=== PATIENT | female | born 1970 | race Two or more races ===

== ENCOUNTER 2020-06-18 14:05 | Outpatient (REF) | payer OTHER, SELFPAY ==
--- NOTE | ~2020-06-18 | MM_ITS ---
EXAMINATION: MM SCREENING DIGITAL BREAST TOMOSYNTHESIS, BILATERAL CLINICAL INFORMATION: Screening. Asymptomatic. The lifetime risk of breast cancer based on the Tyrer-Cuzick Model is 11%. COMPARISON: Mammography: 06/13/2019, 07/04/2018, 05/24/2017, 03/30/2017 TECHNIQUE: Digital breast tomosynthesis is performed in both the craniocaudal and mediolateral oblique views along with computer-aided detection (CAD). Synthesized 2D images are generated from the tomosynthesis. FINDINGS: The breasts are heterogeneously dense, which may obscure small masses (ACR BI-RADS breast composition Category c). There are no significant masses, abnormal calcifications, or other abnormalities. Parenchymal pattern is similar to prior exams. MM/MM tomosynthesis screening BI IMPRESSION: No mammographic evidence of malignancy. ASSESSMENT: BI-RADS 1: Negative RECOMMENDATION: Routine annual mammography screening. This patient's information was entered into a reminder system with a target due date for their next mammogram.
== END 2020-06-18 14:06 | disposition home or self-care (01) ==
LOC: HO.MAMMO 14:05
PROVIDERS: PCP Internal Medicine; Visit Provider Internal Medicine
DX: Z12.31 Encounter for screening mammogram for malignant neoplasm of breast (principal)
CPT/HCPCS: 77063; 77067

== ENCOUNTER 2020-07-01 10:27 | Outpatient (REF) | payer OTHER, SELFPAY ==
[2020-07-01 15:18] LABS: Hematocrit 41.1 % (37-47); Hemoglobin 13.9 g/dl (12.0-16.0); Mean Corpuscular HGB Conc 33.8 g/dl (31.0-35.0); Mean Corpuscular Hemoglobin 29.6 pg (27.0-33.0); Mean Corpuscular Volume 87.4 fL (80-98); Mean Platelet Volume 8.9 fL (9.4-12.3); Platelet Count 364 X10*3/uL (160-400); Red Cell Distribution Width 12.5 % (11.0-16.0); White Blood Count 9.5 X10*3/uL (4.8-10.8)
[2020-07-01 16:09] LABS: HCG Quantitative < 2 mIU/mL; Thyroid Stimulating Hormone 0.75 uIU/mL (0.32-4.0)
[2020-07-02 02:47] LABS: Follicle Stimulating Hormone 16.6 mIU/mL; Lutenizing Hormone 13.5 mIU/mL
[2020-07-02 08:46] LABS: BV Int Neg Control Negative (Negative); BV Int Pos Control Positive (Positive)
[2020-07-02 09:57] LABS: C. trachomatis RNA TMA NOT DETECTED (NOT DETECTED); N. gonorrhoeae RNA TMA NOT DETECTED (NOT DETECTED)
[2020-07-06 07:32] LABS: HPV mRNA E6/E7 rflx Not Detected (Not Detected)
== END 2020-07-01 10:28 | disposition home or self-care (01) ==
LOC: HO.LAB 10:27
PROVIDERS: PCP Internal Medicine; Visit Provider Obstetrics & Gynecology
DX: N92.1 Excessive and frequent menstruation with irregular cycle (principal); N76.0 Acute vaginitis; B96.89 Other specified bacterial agents as the cause of diseases classified elsewhere; Z11.51 Encounter for screening for human papillomavirus (HPV)
CPT/HCPCS: 36415; 83001; 83002; 84443; 84702; 85027; 87480; 87491; 87510; 87591; 87624; 87660; 88142; 99212

== ENCOUNTER 2020-07-12 13:37 | Outpatient (REF) | payer OTHER, SELFPAY ==
--- NOTE | ~2020-07-12 | US_ITS ---
EXAMINATION: ULTRASOUND PELVIS COMPLETE CLINICAL INFORMATION: Excessive and frequent menstruation with irregular cycle. LMP 3 months ago. COMPARISON: None TECHNIQUE: Transabdominal and transvaginal ultrasound of the pelvis is performed. FINDINGS: The uterus is anteverted and anteflexed measuring 8.9 cm in length, 4.5 cm in AP and 5.2 cm in transverse dimension. The endometrium is heterogeneous and measures 1.7 cm in thickness. There is a hypoechoic lesion in the left upper body of uterus measuring 2.0 x 2.1 x 1.8 cm. Previously it measured 1.9 x 1.6 x 1.8 cm, suggestive of fibroid. Small nabothian cysts are seen in the cervix. Right ovary measures 2.2 x 1.1 x 1.3 cm and volume 1.7 mL. Previously it measured 1.9 x 2.4 x 1.2 cm. The left ovary measures 2.9 x 2.1 x 3.0 cm and volume 9.6 mL. There is an anechoic cyst with septation measuring 1.4 x 1.5 x 2.5 cm. Previously it measured 3.0 x 2.0 x 1.6 cm. There is no free fluid in cul-de-sac. US/US transvaginal IMPRESSION: Complex cyst left ovary. Heterogenous thickened endometrium measuring 1.7 cm. Nabothian cysts in cervix. Stable solitary uterine fibroid.
--- NOTE | ~2020-07-12 | US_ITS ---
EXAMINATION: ULTRASOUND PELVIS COMPLETE CLINICAL INFORMATION: Excessive and frequent menstruation with irregular cycle. LMP 3 months ago. COMPARISON: None TECHNIQUE: Transabdominal and transvaginal ultrasound of the pelvis is performed. FINDINGS: The uterus is anteverted and anteflexed measuring 8.9 cm in length, 4.5 cm in AP and 5.2 cm in transverse dimension. The endometrium is heterogeneous and measures 1.7 cm in thickness. There is a hypoechoic lesion in the left upper body of uterus measuring 2.0 x 2.1 x 1.8 cm. Previously it measured 1.9 x 1.6 x 1.8 cm, suggestive of fibroid. Small nabothian cysts are seen in the cervix. Right ovary measures 2.2 x 1.1 x 1.3 cm and volume 1.7 mL. Previously it measured 1.9 x 2.4 x 1.2 cm. The left ovary measures 2.9 x 2.1 x 3.0 cm and volume 9.6 mL. There is an anechoic cyst with septation measuring 1.4 x 1.5 x 2.5 cm. Previously it measured 3.0 x 2.0 x 1.6 cm. There is no free fluid in cul-de-sac. US/US pelvic complete IMPRESSION: Complex cyst left ovary. Heterogenous thickened endometrium measuring 1.7 cm. Nabothian cysts in cervix. Stable solitary uterine fibroid.
== END 2020-07-12 13:38 | disposition home or self-care (01) ==
LOC: HO.US 13:37
PROVIDERS: Visit Provider Obstetrics & Gynecology
DX: N92.1 Excessive and frequent menstruation with irregular cycle (principal)
CPT/HCPCS: 76830; 76856

== ENCOUNTER 2020-07-23 14:07 | Outpatient (REF) | payer OTHER, SELFPAY ==
[2020-07-26 21:16] LABS: CA-125 6 U/mL (<35)
== END 2020-07-23 14:08 | disposition home or self-care (01) ==
LOC: HO.LAB 14:07
PROVIDERS: PCP Internal Medicine; Visit Provider Obstetrics & Gynecology
DX: N92.1 Excessive and frequent menstruation with irregular cycle (principal); N83.292 Other ovarian cyst, left side
CPT/HCPCS: 36415; 58100; 86304; 88305; 99212

== ENCOUNTER → 2020-08-02 10:10 | Outpatient (BNVA) | payer OTHER, SELFPAY | PROVIDERS: Visit Provider Obstetrics & Gynecology | CPT/HCPCS: Q3014 ==

== ENCOUNTER → 2020-08-04 10:33 | Outpatient (BNVA) | payer OTHER, SELFPAY | PROVIDERS: PCP Internal Medicine; Visit Provider Obstetrics & Gynecology | DX: N84.0 Polyp of corpus uteri (principal); N92.1 Excessive and frequent menstruation with irregular cycle | CPT/HCPCS: 99212 ==

== ENCOUNTER 2020-08-16 14:32 | Outpatient (REF) | payer OTHER, SELFPAY ==
--- NOTE | ~2020-08-16 | US_ITS ---
EXAMINATION: US THYROID CLINICAL INFORMATION: Thyroid nodule, single nontoxic. COMPARISON: None TECHNIQUE: Linear transducer grayscale and color Doppler examination with attention to the region of the thyroid. FINDINGS: SIZE: Measurements of the thyroid lobes and nodules are given in sagittal, anteroposterior and transverse dimensions respectively. Right Thyroid Lobe: 3.5 x 1.0 x 1.1 cm, volume 1.9 mL. Parenchyma: The gland echotexture is homogeneous. Thyroid vascularity is normal. Left Thyroid Lobe: 3.1 x 0.7 x 1.0 cm, volume 1.2 mL. Parenchyma: The gland echotexture is heterogeneous. Thyroid vascularity is normal. Isthmus: 0.3 cm in maximum AP dimension. Estimated total number of nodules greater than or equal to 1 cm: None. Wool Fleece Grader nodules are described as follows: No thyroid nodules visualized at this time. NODES: No lymphadenopathy is seen in the tissue surrounding the thyroid gland. US/US thyroid IMPRESSION: Small bilateral thyroid gland without any focal nodules. ACR TI-RADS RECOMMENDATION REFERENCE: Ultrasound-guided fine-needle aspiration, followup ultrasound, no further follow up. * TR1 (0 point) and TR 2 (2 points): No FNA or follow up. * TR3 (3 points): FNA if more than or equal to 2.5 cm in maximum dimension, followup ultrasound in 1, 3 and 5 years if 1.5 to 2.4 cm in maximum dimension. * TR4 (4-6 points): FNA if more than or equal to 1.5 cm in maximum dimension, followup ultrasound in 1, 2, 3 and 5 years if 1 to 1.4 cm in maximum dimension. * TR5 (more than or equal to 7 points): FNA if more than or equal to 1 cm in maximum dimension, followup ultrasound every year for 5 years if 0.5 to 0.9 cm in maximum dimension. * TR3, TR4 or TR5 nodules that are below the size threshold for follow up receive no follow up.
--- NOTE | ~2020-08-16 | XR_ITS ---
EXAMINATION: XR CHEST CLINICAL INFORMATION: Dyspnea. COMPARISON: None TECHNIQUE: 2 views of the chest were obtained. FINDINGS: No significant abnormality is noted involving the heart, lungs, mediastinum, bony thorax or soft tissues. XR/XR chest 2V IMPRESSION: Unremarkable chest examination.
== END 2020-08-16 14:33 | disposition home or self-care (01) ==
LOC: HO.US 14:32
PROVIDERS: PCP Internal Medicine; Visit Provider Internal Medicine
DX: E04.1 Nontoxic single thyroid nodule (principal); R06.00 Dyspnea, unspecified
CPT/HCPCS: 71046; 76536

== ENCOUNTER 2020-08-17 12:20 | Day surgery (SDC) | payer OTHER, SELFPAY ==
--- NOTE | 2020-08-05 07:42 | HO.ANESPROP2 ---
HPI - Anesthesia Eval Consult details Narrative: 49yo F for D&C Hysteroscopy with Novasure, Poss Polypectomy, Poss Myomectomy PMFSH Active Problems Active Problems: All Active Problems (Updated 08/02/20 @ 10:58 by Teodoro Mendez MD) Pelvic pain (Acute) Endometrial polyp (Acute) Complex ovarian cyst (Acute) Bacterial vaginosis (Acute) Menometrorrhagia (Acute) Past Medical History Medical History Anxiety Bipolar 1 disorder LOUISE I (cervical intraepithelial neoplasia I) Hypertension Hypothyroid Insomnia Family History Family History Paternal Aunt Breast CA Surgical History Surgical History Tubal ligation status Social History Social History Smoking Status: Never smoker Meds Allergies Allergy/AdvReac Type Severity Reaction Status Date / Time No Known Allergies Allergy Verified 08/02/20 10:11 Home Medications Medication Instructions Recorded Confirmed Last Taken Type bupropion HCl 150 mg 24 hr tablet, mg PO 07/01/20 08/04/20 Unknown History extended release calcium carbonate 600 mg (1,500 1 tab PO BID 07/01/20 08/04/20 Unknown History mg)-vitamin D3 400 unit tablet clonazepam 2 mg tablet 2 mg PO BID PRN 07/01/20 08/04/20 Unknown History estradiol g VAGINAL 07/01/20 08/04/20 Unknown History hydrochlorothiazide 12.5 mg tablet 12.5 mg PO DAILY 07/01/20 08/04/20 Unknown History lamotrigine 25 mg tablet mg PO 07/01/20 08/04/20 Unknown History levothyroxine 88 mcg tablet 88 mcg PO DAILY 07/01/20 08/04/20 Unknown History melatonin 3 mg tablet 3 mg PO BEDTIME 07/01/20 08/04/20 Unknown History topiramate 50 mg tablet 50 mg PO BID 07/01/20 08/04/20 Unknown History ibuprofen 800 mg tablet 800 mg PO Q8H 08/04/20 08/04/20 Unknown History oxycodone 5 mg capsule 5 mg PO BID PRN 08/04/20 08/04/20 Unknown History Exam Exam Date and Time: August 05, 2020 0742 Pertinent Lab Results Pertinent Lab Results: Laboratory Tests 06/03/18 07/01/20 09:50 14:50 WBC 9.5 Hgb 13.9 Hct 41.1 Plt Count 364 Sodium 137 Potassium 3.9 Chloride 100 BUN 19 H Creatinine 1.17 Assessment and Plan Assessment Anesthesia Assessment: Chart Reviewed
--- NOTE | 2020-08-06 06:19 | PC.NURSE ---
pt called at 615 sts cancelled by office
--- NOTE | 2020-08-12 14:05 | HO.ANESPROP2 ---
HPI - Anesthesia Eval Consult details Narrative: 49yo F for D&C Hysteroscopy with Novasure, Poss Polypectomy, Poss Myomectomy PMFSH Active Problems Active Problems: All Active Problems (Updated 08/02/20 @ 10:58 by Teodoro Mendez MD) Pelvic pain (Acute) Endometrial polyp (Acute) Complex ovarian cyst (Acute) Bacterial vaginosis (Acute) Menometrorrhagia (Acute) Past Medical History Medical History Anxiety Bipolar 1 disorder OLUISE I (cervical intraepithelial neoplasia I) Hypertension Hypothyroid Insomnia Family History Family History Paternal Aunt Breast CA Surgical History Surgical History Tubal ligation status Social History Social History Smoking Status: Never smoker Meds Allergies Allergy/AdvReac Type Severity Reaction Status Date / Time No Known Allergies Allergy Verified 08/17/20 13:01 Home Medications Medication Instructions Recorded Confirmed Last Taken Type bupropion HCl 150 mg 24 hr tablet, mg PO 07/01/20 08/04/20 Unknown History extended release calcium carbonate 600 mg (1,500 1 tab PO BID 07/01/20 08/04/20 Unknown History mg)-vitamin D3 400 unit tablet clonazepam 2 mg tablet 2 mg PO BID PRN 07/01/20 08/04/20 Unknown History estradiol g VAGINAL 07/01/20 08/04/20 Unknown History hydrochlorothiazide 12.5 mg tablet 12.5 mg PO DAILY 07/01/20 08/04/20 Unknown History lamotrigine 25 mg tablet mg PO 07/01/20 08/04/20 Unknown History levothyroxine 88 mcg tablet 88 mcg PO DAILY 07/01/20 08/04/20 Unknown History melatonin 3 mg tablet 3 mg PO BEDTIME 07/01/20 08/04/20 Unknown History topiramate 50 mg tablet 50 mg PO BID 07/01/20 08/04/20 Unknown History ibuprofen 800 mg tablet 800 mg PO Q8H 08/04/20 08/04/20 Unknown History oxycodone 5 mg capsule 5 mg PO BID PRN 08/04/20 08/04/20 Unknown History Exam Exam Date and Time: August 12, 2020 1405 Assessment and Plan Assessment Anesthesia Assessment: Chart Reviewed
[2020-08-17] VITALS (7 sets, daily range): BP systolic 114–130; BP diastolic 69–79; PULSE 76–84; RESP 17–18; TEMP 36.6–36.7; O2SAT 98–100; BMI 28.3
--- NOTE | 2020-08-17 13:07 | MHC.SHP ---
Pre-Procedural Eval Section A The patient is an INPATIENT: No Changes since office visit: No Cold of Flu in the past 2 weeks, No New Medical Problems, No Changes in Medication and No Patient answered all questions The History & Physical has been completed within 30 days and I have reviewed it.: Yes Section B Chief Complaint: Polyp of Corpus Uteri, Frequent Menstruation Allergies: Allergies Allergy/AdvReac Type Severity Reaction Status Date / Time No Known Allergies Allergy Verified 08/17/20 13:01 Plan Diagnosis/Plan: Unchanged I have reviewed the history and physical and performed a pertinent physical examination on my patient. No changes have occurred unless specified.
[2020-08-17 13:08] LABS: UPreg QC Valid YES; Urine Pregnancy NEG (NEGATIVE)
--- NOTE | 2020-08-17 13:11 | P.CONAN_ITS ---
[facility] Active Problems Active Problems: All Active Problems (Updated 08/02/20 @ 10:58 by Teodoro Mendez MD) Pelvic pain (Acute) Endometrial polyp (Acute) Complex ovarian cyst (Acute) Bacterial vaginosis (Acute) Menometrorrhagia (Acute) Past Medical History Medical History Anxiety Bipolar 1 disorder LOUISE I (cervical intraepithelial neoplasia I) Hypertension Hypothyroid Insomnia Family History Family History Paternal Aunt Breast CA Surgical History Surgical History Tubal ligation status Social History Social History Smoking Status: Never smoker Use of substances other than those prescribed or required for medical reasons: No Advance Directives: No Advance Directives Information Provided: Yes Meds Allergies Allergy/AdvReac Type Severity Reaction Status Date / Time No Known Allergies Allergy Verified 08/17/20 13:01 Active Medications: Current Medications Generic Name Dose Route Start Last Admin Trade Name Renatoq PRN Reason Stop Dose Admin Lactated Ringer's 1,000 mls @ 100 mls/hr 08/17/20 12:45 Lr IVCONT .Q10H TAYLOR Home Medications Medication Instructions Recorded Confirmed Last Taken Type bupropion HCl 150 mg 24 hr tablet, mg PO 07/01/20 08/04/20 Unknown History extended release calcium carbonate 600 mg (1,500 1 tab PO BID 07/01/20 08/04/20 Unknown History mg)-vitamin D3 400 unit tablet clonazepam 2 mg tablet 2 mg PO BID PRN 07/01/20 08/04/20 Unknown History estradiol g VAGINAL 07/01/20 08/04/20 Unknown History hydrochlorothiazide 12.5 mg tablet 12.5 mg PO DAILY 07/01/20 08/04/20 Unknown History lamotrigine 25 mg tablet mg PO 07/01/20 08/04/20 Unknown History levothyroxine 88 mcg tablet 88 mcg PO DAILY 07/01/20 08/04/20 Unknown History melatonin 3 mg tablet 3 mg PO BEDTIME 07/01/20 08/04/20 Unknown History topiramate 50 mg tablet 50 mg PO BID 07/01/20 08/04/20 Unknown History ibuprofen 800 mg tablet 800 mg PO Q8H 08/04/20 08/04/20 Unknown History oxycodone 5 mg capsule 5 mg PO BID PRN 08/04/20 08/04/20 Unknown History Exam Exam Date and Time: August 17, 2020 1311 Height,Weight and Vital Signs: Height 4 ft 11 in Weight 63.503 kg Last Vital Signs Temp 97.9 F 08/17/20 13:01 Pulse 83 08/17/20 13:01 Resp 18 08/17/20 13:01 BP 118/75 08/17/20 13:01 Pulse Ox 99 08/17/20 13:01 Pertinent Lab Results Pertinent Lab Results: Laboratory Tests 08/17/20 12:52 Urine Test NEG Airway Mallampati Class: II TM Dist: >3cm Loose/Missing/Broken Teeth: No Heart: RRR Lungs: CTA Assessment and Plan Assessment Anesthesia Assessment: Anesthesia Plan Discussed and Chart Reviewed Final Anesthetic Review NPO: Yes ASA Class: II Final Preanesthetic Review: Meds/Allgs Chart Reviewed, Consent Obtained/Reviewed and Anes Risks/Benef Reviewed Patient Risk: Low Procedure Risk: Low Anesthetic Plan Anesthetic Plan: GA Disposition: Standard PACU
[2020-08-17] MEDS: Lactated Ringers 1,000 ML 100 ML IVCONT (13:17)
--- NOTE | 2020-08-17 13:48 | PM.OP ---
Brief Operative Note Date of Service: 08/17/20 Pre-op diagnosis: Menometrorrhagia with questionable endometrial polyp by ultrasound Post-op diagnosis: other (Same with Normal endometrial cavity) Procedure: Diagnostic hysteroscopy D&C with NovaSure Endometrial Ablation Surgeon: Teodoro Mendez MD Anesthesia: MAC Estimated blood loss (mL): 0 Pathology: none sent Condition: stable Disposition: PACU
--- NOTE | 2020-08-17 13:49 | P.OP_ITS ---
Operative Note Operative Note Date of Service: 03/12/20 Narrative: Preop diagnosis: Menometrrrhagia with a endometrial polyp by ultrasound Post Op Diagnosis: Same with normal endometrial cavity Op: Diagnostic hysteroscopy D&C with Novasure Endometrial Ablation Anesthesia: MAC Travel Professional: None QBL: Minimal Pathology: Endometrial scrapings Complications: None Procedure: The patient was put in the dorsal lithotomy position. She was prepped and draped in the usual sterile manner. Bimanual exam prior to prepping revealed a mobile, anteverted uterus. A speculum was placed in the vagina and the anterior lip of the cervix was grasped with a single toothed tenaculum and brought forward. T aking care not to enter deep into the uterus, a sound was passed inside to measure the length of the uterus and cervix. This length was found to be 8 cm. Next, Hegar dilator up to 5 mm in diameter was inserted into the cervical os to measure the cervical length which was 3 cm This yielded an endometrial cavity length of 6.5 cm. Diagnostic hysteroscopy was introduced inside the patient urine cavity which revealed normal cavity with no evidence of any pathology. . A series of Hegar dilators were then inserted sequentially into the cervical os up to a size of 5 mm. Then more cervical dilatation was done till 7 mm was reached. The Novasure device was then opened and tested; the fan deployed easily. The instrument was set to the correct cavity length and introduced into the uterine cavity. The fan was slowly deployed with gentle movements to ensure a snug fit within the cavity. The cavity width read 4.5 cm. The measurements were imported and a cavity check was done. The trumpet was then slid down to the cervix and the device was activated. The total burn time was 91 seconds. The fan was retracted and device removed. The fan was examined and revealed charred tissue. The tenaculum was removed and the cervix examined for hemostasis which was achieved using pressure. Finally the speculum was removed. The patient tolerated the procedure well and was brought to the recovery room in a stable condition. At the end of the procedure all sponges and instruments were counted and correct. The blood loss was minimal and there were no complications.
[2020-08-17] MEDS: Acetaminophen 325 MG TABLET 650 MG PO (14:47)
[2020-08-17] MEDS: oxyCODONE HCl Immed Release 5 MG TABLET PO (14:48)
== END 2020-08-17 15:04 | disposition home or self-care (01) ==
PROVIDERS: PCP Internal Medicine; Visit Provider Obstetrics & Gynecology
PROC: 0UDB8ZX Extraction of Endometrium, Via Natural or Artificial Opening Endoscopic, Diagnostic (ICD-10-PCS; CPT 58558; principal; 2020-08-17 14:00)
DX: N84.0 Polyp of corpus uteri (principal); N92.1 Excessive and frequent menstruation with irregular cycle; Z86.001 Personal history of in-situ neoplasm of cervix uteri; Z98.51 Tubal ligation status; I10 Essential (primary) hypertension; Z79.899 Other long term (current) drug therapy
CPT/HCPCS: 58563; 81025; 88305; J1100; J2250; J2405; J3010

== ENCOUNTER → 2020-08-31 11:47 | Outpatient (BNVA) | payer OTHER, SELFPAY | PROVIDERS: Visit Provider Obstetrics & Gynecology | DX: N92.1 Excessive and frequent menstruation with irregular cycle (principal) | CPT/HCPCS: Q3014 ==

== ENCOUNTER 2020-11-11 15:19 | Outpatient (REF) | payer OTHER, SELFPAY ==
--- NOTE | ~2020-11-11 | US_ITS ---
EXAMINATION: ULTRASOUND PELVIS COMPLETE CLINICAL INFORMATION: Ovarian cysts. Follow up. Status post ablation. COMPARISON: Ultrasound pelvis 07/12/2020. TECHNIQUE: Transabdominal and transvaginal imaging of pelvis is performed. FINDINGS: The uterus is anteverted and anteflexed measuring 8.3 cm in length, 4.2 cm in AP and 5.3 cm in transverse dimension. Endometrial thickness is 0.5 cm. There is a small hypoechoic lesion in the left fundus measuring 1.5 x 1.3 x 1.3 cm. Previously it measured 2.0 x 2.1 x 1.8 cm. No additional lesion seen. There is minimal fluid within the endometrial canal. There is a small anechoic cyst in the cervix. The right ovary measures 2.0 x 1.2 x 1.9 cm and volume 2.4 mL. It appears unremarkable. The left ovary measures 2.7 x 1.7 x 2.3 cm and volume 5.5 mL. A dominant follicle is seen measuring 1.4 x 0.8 x 1.3 cm. It is probably the same cyst without septation. A cyst with septations was seen previously. There is no free fluid in the cul-de-sac. US/US transvaginal IMPRESSION: Stable uterine fibroid. Left ovarian cyst likely same as before minus septation. Previously it measured 1.4 x 1.5 x 2.5 cm.
--- NOTE | ~2020-11-11 | US_ITS ---
EXAMINATION: ULTRASOUND PELVIS COMPLETE CLINICAL INFORMATION: Ovarian cysts. Follow up. Status post ablation. COMPARISON: Ultrasound pelvis 07/12/2020. TECHNIQUE: Transabdominal and transvaginal imaging of pelvis is performed. FINDINGS: The uterus is anteverted and anteflexed measuring 8.3 cm in length, 4.2 cm in AP and 5.3 cm in transverse dimension. Endometrial thickness is 0.5 cm. There is a small hypoechoic lesion in the left fundus measuring 1.5 x 1.3 x 1.3 cm. Previously it measured 2.0 x 2.1 x 1.8 cm. No additional lesion seen. There is minimal fluid within the endometrial canal. There is a small anechoic cyst in the cervix. The right ovary measures 2.0 x 1.2 x 1.9 cm and volume 2.4 mL. It appears unremarkable. The left ovary measures 2.7 x 1.7 x 2.3 cm and volume 5.5 mL. A dominant follicle is seen measuring 1.4 x 0.8 x 1.3 cm. It is probably the same cyst without septation. A cyst with septations was seen previously. There is no free fluid in the cul-de-sac. US/US pelvic complete IMPRESSION: Stable uterine fibroid. Left ovarian cyst likely same as before minus septation. Previously it measured 1.4 x 1.5 x 2.5 cm.
== END 2020-11-11 15:20 | disposition home or self-care (01) ==
LOC: HO.US 15:19
PROVIDERS: Visit Provider Obstetrics & Gynecology
DX: N83.299 Other ovarian cyst, unspecified side (principal)
CPT/HCPCS: 76830; 76856

== ENCOUNTER 2021-01-11 10:05 | Outpatient (REF) | payer OTHER, SELFPAY ==
--- NOTE | ~2021-01-11 | XR_ITS ---
EXAMINATION: XR LUMBOSACRAL SPINE CLINICAL INFORMATION: Lumbago with sciatica right-sided. COMPARISON: None TECHNIQUE: Three views of the lumbosacral spine. FINDINGS: Mild thoracolumbar dextroscoliosis is present, could be positional. The vertebral bodies and posterior elements are normal. The disc spaces are preserved and the vertebral alignment is normal. The paraspinal soft tissues are normal. XR/XR lumbar spine 2-3V IMPRESSION: Mild thoracolumbar dextroscoliosis, could be positional, otherwise unremarkable.
== END 2021-01-11 10:06 | disposition home or self-care (01) ==
LOC: HO.XRAY 10:05
PROVIDERS: PCP Internal Medicine; Visit Provider Internal Medicine
DX: M54.41 Lumbago with sciatica, right side (principal)
CPT/HCPCS: 72100

== ENCOUNTER 2021-01-27 10:33 | Outpatient (REF) | payer OTHER, SELFPAY ==
[2021-01-27 15:46] LABS: CT PCR NOT DETECTED (Not Detect.); NG PCR NOT DETECTED (Not Detect.)
[2021-01-28 09:30] LABS: BV Int Neg Control Negative (Negative); BV Int Pos Control Positive (Positive)
== END 2021-01-27 10:34 | disposition home or self-care (01) ==
LOC: HO.LAB 10:33
PROVIDERS: PCP Internal Medicine; Visit Provider Obstetrics & Gynecology
DX: B37.3 Candidiasis of vulva and vagina (principal); N83.299 Other ovarian cyst, unspecified side; D22.9 Melanocytic nevi, unspecified
CPT/HCPCS: 87480; 87491; 87510; 87591; 87660; 99212

== ENCOUNTER 2021-02-23 09:46 | Outpatient (REF) | payer OTHER, SELFPAY | END 2021-02-23 09:47 | disposition home or self-care (01) | LOC: HO.LAB 09:46 | PROVIDERS: Visit Provider Obstetrics & Gynecology | DX: D22.9 Melanocytic nevi, unspecified (principal) | CPT/HCPCS: 11400; 88304; 88305 ==

== ENCOUNTER → 2021-04-07 12:14 | Outpatient (BNVA) | payer OTHER, SELFPAY | PROVIDERS: Visit Provider Obstetrics & Gynecology | DX: D22.9 Melanocytic nevi, unspecified (principal) | CPT/HCPCS: 99212 ==

== ENCOUNTER → 2021-05-24 13:29 | Outpatient (BNVA) | payer OTHER, SELFPAY | PROVIDERS: PCP Internal Medicine; Visit Provider Nurse Practitioner Family | DX: M53.3 Sacrococcygeal disorders, not elsewhere classified (principal); M47.816 Spondylosis without myelopathy or radiculopathy, lumbar region | CPT/HCPCS: 99202 ==

== ENCOUNTER 2021-06-21 13:20 | Outpatient (REF) | payer OTHER, SELFPAY ==
--- NOTE | ~2021-06-21 | MM_ITS ---
EXAMINATION: MM SCREENING DIGITAL BREAST TOMOSYNTHESIS, BILATERAL CLINICAL INFORMATION: Screening. Asymptomatic. The lifetime risk of breast cancer based on the Tyrer-Cuzick Model is 8%. COMPARISON: Mammography: 06/18/2020, 06/13/2019, 06/06/2018 TECHNIQUE: Digital breast tomosynthesis is performed in both the craniocaudal and mediolateral oblique views along with computer-aided detection (CAD). Synthesized 2D images are generated from the tomosynthesis. FINDINGS: The breasts are heterogeneously dense, which may obscure small masses (ACR BI-RADS breast composition Category c). There are no significant masses, abnormal calcifications, or other abnormalities. Parenchymal pattern is similar to prior studies. There is no developing density or architectural abnormality. The axilla and skin contours are unremarkable. No significant changes. MM/MM tomosynthesis screening BI IMPRESSION: No mammographic evidence of malignancy. ASSESSMENT: BI-RADS 1: Negative RECOMMENDATION: Routine annual mammography screening. This patient's information was entered into a reminder system with a target due date for their next mammogram.
== END 2021-06-21 13:21 | disposition home or self-care (01) ==
LOC: HO.MAMMO 13:20
PROVIDERS: PCP Internal Medicine; Visit Provider Internal Medicine
DX: Z12.31 Encounter for screening mammogram for malignant neoplasm of breast (principal)
CPT/HCPCS: 77063; 77067

== ENCOUNTER 2021-07-27 05:47 | Outpatient (REF) | payer OTHER, SELFPAY ==
--- NOTE | ~2021-07-27 | FL_ITS ---
EXAMINATION: XR FLUOROSCOPY WITH IMAGES CLINICAL INFORMATION: Sacral coccygeal disorder COMPARISON: None. TECHNIQUE: Fluoroscopy performed by Dr. Scotty Velazquez. Fluoroscopy time: 0.3 minutes DAP: 0.543 Gycm2 Images: 4 FINDINGS: 4 C-arm views demonstrate placement of needles overlying the sacroiliac joints bilaterally. FL/FL guidance in treatment room IMPRESSION: Fluoroscopy provided for pain management.
== END 2021-07-27 05:48 | disposition home or self-care (01) ==
LOC: HO.RADIR 05:47
PROVIDERS: Visit Provider Internal Medicine
DX: M53.3 Sacrococcygeal disorders, not elsewhere classified (principal)
CPT/HCPCS: 27096; J1040; Q9967

== ENCOUNTER → 2021-09-02 09:24 | Outpatient (BNVA) | payer OTHER, SELFPAY | PROVIDERS: PCP Internal Medicine; Visit Provider Nurse Practitioner Family | DX: M53.3 Sacrococcygeal disorders, not elsewhere classified (principal); M47.816 Spondylosis without myelopathy or radiculopathy, lumbar region; M62.838 Other muscle spasm | CPT/HCPCS: 99212 ==

== ENCOUNTER 2022-06-30 13:42 | Outpatient (REF) | payer OTHER, SELFPAY ==
--- NOTE | ~2022-06-30 | MM_ITS ---
EXAMINATION: MM SCREENING DIGITAL BREAST TOMOSYNTHESIS, BILATERAL CLINICAL INFORMATION: Screening. Asymptomatic. The lifetime risk of breast cancer based on the Tyrer-Cuzick Model is 7%. COMPARISON: Mammography: 06/21/2021, 06/18/2020, 06/13/2019 TECHNIQUE: Digital breast tomosynthesis is performed in both the craniocaudal and mediolateral oblique views along with computer-aided detection (CAD). Synthesized 2D images are generated from the tomosynthesis. FINDINGS: The breasts are heterogeneously dense, which may obscure small masses (ACR BI-RADS breast composition Category c). There are no significant masses, abnormal calcifications, or other abnormalities. No architectural abnormality or developing density or significant change from prior studies. The axilla are unremarkable. Skin contours are smooth. MM/MM tomosynthesis screening BI IMPRESSION: No mammographic evidence of malignancy. ASSESSMENT: BI-RADS 1: Negative RECOMMENDATION: Routine annual mammography screening. This patient's information was entered into a reminder system with a target due date for their next mammogram.
== END 2022-06-30 13:43 | disposition home or self-care (01) ==
LOC: HO.MAMMO 13:42
PROVIDERS: Visit Provider Obstetrics & Gynecology
DX: Z12.31 Encounter for screening mammogram for malignant neoplasm of breast (principal)
CPT/HCPCS: 77063; 77067

== ENCOUNTER 2023-07-06 13:41 | Outpatient (REF) | payer OTHER, SELFPAY | END 2023-07-06 13:42 | disposition home or self-care (01) | LOC: HO.MAMMO 13:41 | PROVIDERS: PCP Student in an Organized Health Care Education/Training Program; Visit Provider Student in an Organized Health Care Education/Training Program | DX: Z12.31 Encounter for screening mammogram for malignant neoplasm of breast (principal) | CPT/HCPCS: 77063; 77067 ==

== ENCOUNTER → 2023-07-06 14:00 | Outpatient (BNV) | payer OTHER, SELFPAY | PROVIDERS: PCP Student in an Organized Health Care Education/Training Program; Visit Provider Radiology Diagnostic Radiology | DX: Z12.31 Encounter for screening mammogram for malignant neoplasm of breast (principal) | CPT/HCPCS: 77063; 77067 ==

== ENCOUNTER 2023-08-29 13:25 | Outpatient (REF) | payer MEDICARE, MEDICAID, SELFPAY ==
[2023-08-30 14:16] LABS: CT PCR NOT DETECTED (Not Detect.); NG PCR NOT DETECTED (Not Detect.)
[2023-08-31 09:46] LABS: BV Int Neg Control Negative (Negative); BV Int Pos Control Positive (Positive)
== END 2023-08-29 13:26 | disposition home or self-care (01) ==
LOC: HO.LNP 13:25
PROVIDERS: Visit Provider Obstetrics & Gynecology
DX: Z01.419 Encounter for gynecological examination (general) (routine) without abnormal findings (principal); Z20.2 Contact with and (suspected) exposure to infections with a predominantly sexual mode of transmission
CPT/HCPCS: 0353U; 87480; 87510; 87660; G0101

== ENCOUNTER 2023-08-29 13:25 | Outpatient (AMB) | payer MEDICARE, MEDICAID, SELFPAY ==
--- NOTE | 2023-08-29 13:33 | A.OFFVIS_ITS ---
Vital Signs 08/29/23 13:51 Height 4 ft 11 in Weight 130 lb BMI 26.3 BP 118/70 Intake Visit Reasons: DIP[employer]OCK [employer] W[employer]S annual exam/DO NOT RS Intake Note: c/o of vaginal discharge Clinical Trials Specialist Required: Yes Clinical Trials Specialist Language: Laser Beam Trim Operator Name: Iona VALENTIN Information Interpreted: non-clinical & clinical Bottle Assembler: Bottle Assembler Present (Iona VALENTIN) Accompanied by: Self / Same As Patient Allergies No Known Allergies Allergy (Verified 08/29/23 13:53) Post menopausal: Yes HPI Comments Details: Presenting for annual exam. No complaints. Last Pap/HPV was negative in 07/18 Last Mammogram was BI-RADS 1 in 07/21 No previous screening Colonoscopy PFSH Medical History LOUISE I (cervical intraepithelial neoplasia I) Hypertension Insomnia Anxiety Bipolar 1 disorder Hypothyroid Surgical History Hx of cholecystectomy Tubal ligation status Family History Paternal Aunt Breast CA Social History Household Members: None Housing: Apartment Alcohol intake: never Patient Tobacco Use Status: Never used Tobacco Current occupational status: unemployed Sexually active: No Sexual orientation: Straight/Heterosexual Gender identity: Female Female Reproductive History Menstrual Age of Menarche: 14 control method: permanent sterilization Menopause type: natural Total pregnancies: 2 Full term: 2 Number of Living Children: 2 Date of last pap smear: 08/30/20 Date of Mammogram: 07/06/23 Review of Systems Const All systems reviewed & are unremarkable except as noted in HPI and below Card Reports as per HPI Resp Reports as per HPI GI Reports as per HPI and Reports no additional complaints Reports as per HPI Physical Exam Vital Signs: Last Vital Signs BP 118/70 08/29/23 13:51 BMI result Body Mass Index 26.3 Const General: cooperative, healthy appearing and comfortable Chest Chest palpation & inspection: normal inspection of the chest and normal palpation of entire chest wall Breast/axilla inspection: normal inspection of the breasts and normal inspection of the axillae Breast/axilla palpation: normal palpation of the breasts, normal palpation of the axillae and no axillary lymphadenopathy Resp Effort & Inspection: normal respiratory effort Auscultation: clear to auscultation bilaterally Percussion: percussion normal Cardio Palpation: normal PMI Rate: regular rate Rhythm: regular rhythm Heart sounds: no murmurs and no rubs Peripheral pulses: Peripheral pulses 2+ throughout GI Inspection: Yes normal to inspection Palpation (GI): Soft to palpation, nontender, no guarding, not rigid and No hepatosplenomegaly present Percussion: Yes normal to percussion Auscultation: normal bowel sounds Rectal Exam - Female: deferred General: Yes bladder normal to palpation External Female Exam: No lesion Speculum Exam - Vagina: normal appearance of the vagina, normal palpation, normal vaginal discharge and not erythematous Speculum Exam - Cervix: normal appearance of the cervix and normal palpation Bimanual exam- vagina & uterus: normal bimanual exam, normal palpation, uterine size normal, bladder normal to palpation, consistency normal and normal palpation Bimanual Exam- Adnexa, other: normal adnexae, no masses and no tenderness Assessment & Plan Assessment & Plan (1) Well woman exam: Code(s): Z01.419 - Encounter for gynecological examination (general) (routine) without abnormal findings Category: Medical Plan: Co testing not indicated this year. Counseled the patient about the recommended dietary allowance of 1200 mg of Calcium & 600 IU of vitamin D. Instructions given the patient to schedule next screening Mammogram in 07/22. The patient was referred to GI for screening colonoscopy . The patient was instructed to perform monthly self-breast exams and schedule annual exam in a year. All questions answered and the patient verbalized understanding. Orders: Referrals Gastroenterology Referral Z12.11 - Encounter for screening for malignant neoplasm of colon Coding Level of Care Code Est Pt Prev Care 40-64y(22419) Diagnoses Well woman exam Z01.419
[2023-08-29 13:51] VITALS: BP 118/70; BMI 26.3
== END 2023-08-29 14:22 | disposition home or self-care (01) ==
PROVIDERS: Visit Provider Obstetrics & Gynecology
DX: Z01.419 Encounter for gynecological examination (general) (routine) without abnormal findings (principal)
CPT/HCPCS: G0101

== ENCOUNTER 2023-12-10 13:47 | Outpatient (AMB) | payer OTHER, SELFPAY ==
[2023-12-10 13:59] VITALS: BP 125/69; PULSE 79; BMI 26.2
--- NOTE | 2023-12-10 13:59 | A.OFFVIS_ITS ---
Vital Signs 12/10/23 13:59 Height 4 ft 11 in Weight 129 lb 10.109 oz BMI 26.2 BP 125/69 Blood Pressure Location Rt brachial Position Sitting Pulse 79 Intake Visit Reasons: Screening Colonoscopy Intake Note: New patient in office today for colonoscopy screening. CC: Patient c/o constipation and she states she takes OTC laxative which helps her have a BMs. She also reports occasional acid reflux and takes Pepcid for symptoms. Allergies No Known Allergies Allergy (Verified 12/10/23 14:07) HPI HPI Screening Colonoscopy: Details: 53 year old? female here today for pre colonoscopy screening.? Patient was sent to us by her PCP.? This is her first colonoscopy screening.? Patient denies any gastrointestinal symptoms in the past or at present.? However patient does admit that sometimes when she is constipated she might use laxative [id number]. It happens infrequently. Patient reports that occasionally she will have acid reflux, only with she eats something spicy. Again patient reports that this is not very often. Denies any personal or family history of gastrointestinal disease, colon polyps, or CRC.? Denies history of difficulty with sedation or anesthesia in the past.? Negative for history of sleep apnea.? Denies any history of cardiac, renal, pulmonary, or hepatic disease.?? No history of infectious? diseases like hepatitis A, B, C, HIV or tuberculosis.? Patient is not on any anticoagulation [facility] Medical History LOUISE I (cervical intraepithelial neoplasia I) Hypertension Insomnia Anxiety Bipolar 1 disorder Hypothyroid Surgical History Hx of cholecystectomy Tubal ligation status Family History Paternal Aunt Breast CA Maternal Grandmother Stomach cancer Son Colon polyps Social History Household Members: None Housing: Apartment Alcohol intake: never Patient Tobacco Use Status: Never used Tobacco Current occupational status: unemployed Sexual orientation: Straight/Heterosexual Gender identity: Female Female Reproductive History Menstrual Age of Menarche: 14 Review of Systems Const Denies weight gain and Denies weight loss ENT Reports no additional complaints, Denies dysphagia and Denies odynophagia Card Reports no additional complaints Resp Reports no additional complaints GI Denies abdominal pain, Denies belching, Denies melena, Denies bloating, Denies change in bowel habits, Denies dysphagia, Denies excessive flatus, Denies dyspepsia, Reports heartburn (Occasional), Denies diarrhea, Denies loose stools, Denies nausea, Denies odynophagia and Denies vomiting Reports no additional complaints Musc Reports no additional complaints Neuro Reports no additional complaints Psych Reports no additional complaints Endo Reports no additional complaints Physical Exam Vital Signs: Last Vital Signs Pulse 79 12/10/23 13:59 BP 125/69 12/10/23 13:59 BMI result Body Mass Index 26.2 Const General: healthy appearing, no acute distress and well developed Nutritional Appearance: well nourished Orientation/consciousness: patient oriented x3 Resp Effort & Inspection: normal respiratory effort, able to speak in complete sentences, no tracheal deviation and symmetric chest movement Auscultation: clear to auscultation bilaterally Cardio Rate: regular rate GI Inspection: Yes normal to inspection and No distended Palpation (GI): Soft to palpation, not firm, nontender and No hepatosplenomegaly present Auscultation: normal bowel sounds General: Yes no CVA tenderness Back/Spine/Pelvis Back: no CVA tenderness Skin General skin exam: elasticity normal, turgor normal and dry skin Neuro General: patient oriented x3 Psych Appearance: grossly normal Mental Status: mental status grossly normal Assessment & Plan Assessment & Plan (1) Screen for colon cancer: Code(s): Z12.11 - Encounter for screening for malignant neoplasm of colon Plan Patient denies any GI, cardiac or respiratory symptoms.? Denies any issues with anesthesia in the past.? Denies any history of sleep apnea.? No history infectious diseases in the past or present.? Not on any anticoagulation therapy.? No family or personal history of colon cancer.? Patient denies melena, hematochezia, unintentional weight loss or ribbon like stools.? Discussed at length the pre-procedure,? prep, diet & medications as well as what to expect prior, during and after the procedure.?? Stressed the importance of good bowel prep.? Recommended the use of Vaseline or Calmoseptine OTC & baby wipes with bowel movements to promote comfort.? ?Patient verbalizes understanding and agrees to plan of care.? She was given the opportunity to ask questions and all questions answered.? We will see her after the procedure.? Medications: New polyethylene glycol 3350 (Miralax) As directed by gastro[facility]ology [facility] at [facility] 238 grams PO ONCE 238 grams 0RF Z12.11 - Encounter for screening for malignant neoplasm of colon bisacodyl (Dulcolax (bisacodyl)) take 4 tabs at noon the day before your colonoscopy 20 mg (4 x 5 mg) PO ONCE 4 tabs 0RF 1 day Z12.11 - Encounter for screening for malignant neoplasm of colon Coding Level of Care Code New Pt Level 3 (22796) Diagnoses Screen for colon cancer Z12.11 Time Spent (min) 40 Comment 30 minutes spent with patient and additional 10 minutes spent reviewing her records
== END 2023-12-10 14:44 | disposition home or self-care (01) ==
PROVIDERS: Referring Provider Obstetrics & Gynecology; Visit Provider Nurse Practitioner Family
DX: Z01.818 Encounter for other preprocedural examination (principal); Z12.11 Encounter for screening for malignant neoplasm of colon
CPT/HCPCS: 99024

== ENCOUNTER → 2023-12-10 13:47 | Outpatient (BNVA) | payer OTHER, SELFPAY | PROVIDERS: Referring Provider Obstetrics & Gynecology; Visit Provider Nurse Practitioner Family | DX: Z12.11 Encounter for screening for malignant neoplasm of colon (principal) | CPT/HCPCS: 99212 ==

== ENCOUNTER 2024-04-15 06:00 | Day surgery (SDC) | payer OTHER, SELFPAY ==
[2024-04-10 15:20] VITALS: BMI 26.3
--- NOTE | 2024-04-14 10:41 | HO.ANESPROP2 ---
Documented by User: Mery Mcdermott NP 04/14/24 10:42 HPI - Anesthesia Eval Consult details Narrative: 53yo F for Colonoscopy PMFSH Active Problems Active Problems: All Active Problems Well woman exam (Acute) Muscle spasm (Acute) Spondylosis of lumbar spine (Acute) Sacroiliac joint pain (Acute) Skin mole (Acute) Candidal vulvovaginitis (Acute) Pelvic pain (Acute) Endometrial polyp (Acute) Complex ovarian cyst (Acute) Bacterial vaginosis (Acute) Menometrorrhagia (Acute) Past Medical History Medical History LOUISE I (cervical intraepithelial neoplasia I) Hypertension Insomnia Anxiety Bipolar 1 disorder Hypothyroid Family History Family History Paternal Aunt Breast CA Maternal Grandmother Stomach cancer Son Colon polyps Surgical History Surgical History Hx of dilation and curettage Hx of cholecystectomy Tubal ligation status Social History Social History Household Members: None Housing: Apartment Alcohol intake: never Patient Tobacco Use Status: Never used Tobacco Use of substances other than those prescribed or required for medical reasons: No Are you DNR?: No Advance Directives: No Advance Directives Information Provided: Yes Current occupational status: unemployed Sexual orientation: Straight/Heterosexual Gender identity: Female Meds Allergies Allergy/AdvReac Type Severity Reaction Status Date / Time No Known Allergies Allergy Verified 04/15/24 07:13 Home Medications ?Medication ?Instructions ?Recorded ?Confirmed ?Last Taken ?Type calcium 600 mg (as 1 tab PO BID 07/01/20 04/15/24 Unknown History carbonate)-vitamin D3 10 mcg (400 unit) tablet topiramate 50 mg tablet 50 mg PO BID 07/01/20 04/15/24 Unknown History bupropion HCl 150 mg 24 hr tablet, 150 mg PO DAILY 05/24/21 04/15/24 Unknown History extended release bupropion HCl 300 mg 24 hr tablet, 300 mg PO QAM 05/24/21 04/15/24 Unknown History extended release lamotrigine 100 mg tablet 100 mg PO DAILY 05/24/21 04/15/24 Unknown History lamotrigine 200 mg tablet 200 mg PO DAILY 05/24/21 04/15/24 Unknown History lurasidone 20 mg tablet (Latuda) 20 mg PO DAILY 05/24/21 04/15/24 Unknown History clonazepam 1 mg tablet 1 mg PO TID PRN Anxiety 12/10/23 04/15/24 Unknown History doxepin 10 mg capsule 10 - 20 mg PO BEDTIME PRN insomnia 12/10/23 04/15/24 Unknown History Exam Height,Weight and Vital Signs: Height 4 ft 11 in Weight 58.967 kg Assessment and Plan Assessment Anesthesia Assessment: Chart Reviewed Documented by User: Lexii Alvarenga MD 04/15/24 08:46 PMFSH Past Medical History Medical History LOUISE I (cervical intraepithelial neoplasia I) Hypertension Insomnia Anxiety Bipolar 1 disorder Hypothyroid Family History Family History Paternal Aunt Breast CA Maternal Grandmother Stomach cancer Son Colon polyps Family history of problems with anesthesia: No Surgical History Surgical History Hx of dilation and curettage Hx of cholecystectomy Tubal ligation status History of Problems with Anesthesia: No Social History Social History Household Members: None Housing: Apartment Alcohol intake: never Patient Tobacco Use Status: Never used Tobacco Use of substances other than those prescribed or required for medical reasons: No Are you DNR?: No Advance Directives: No Advance Directives Information Provided: Yes Current occupational status: unemployed Sexual orientation: Straight/Heterosexual Gender identity: Female Meds Allergies Allergy/AdvReac Type Severity Reaction Status Date / Time No Known Allergies Allergy Verified 04/15/24 07:13 Home Medications ?Medication ?Instructions ?Recorded ?Confirmed ?Last Taken ?Type calcium 600 mg (as 1 tab PO BID 07/01/20 04/15/24 Unknown History carbonate)-vitamin D3 10 mcg (400 unit) tablet topiramate 50 mg tablet 50 mg PO BID 07/01/20 04/15/24 Unknown History bupropion HCl 150 mg 24 hr tablet, 150 mg PO DAILY 05/24/21 04/15/24 Unknown History extended release bupropion HCl 300 mg 24 hr tablet, 300 mg PO QAM 05/24/21 04/15/24 Unknown History extended release lamotrigine 100 mg tablet 100 mg PO DAILY 05/24/21 04/15/24 Unknown History lamotrigine 200 mg tablet 200 mg PO DAILY 05/24/21 04/15/24 Unknown History lurasidone 20 mg tablet (Latuda) 20 mg PO DAILY 05/24/21 04/15/24 Unknown History clonazepam 1 mg tablet 1 mg PO TID PRN Anxiety 12/10/23 04/15/24 Unknown History doxepin 10 mg capsule 10 - 20 mg PO BEDTIME PRN insomnia 12/10/23 04/15/24 Unknown History Exam Airway Mallampati Class: II TM Dist: >3cm Neck ROM: Full Heart: rrr Lungs: cta Assessment and Plan Assessment Anesthesia Assessment: Anesthesia Plan Discussed Final Anesthetic Review Family History of Problems with Anesthesia: No History of Problems with Anesthesia: No NPO: Yes ASA Class: III Final Preanesthetic Review: No Changes in Pt Med Stat, Meds/Allgs Chart Reviewed, Consent Obtained/Reviewed and Anes Risks/Benef Reviewed Patient Risk: Intermediate Procedure Risk: Low Anesthetic Plan Anesthetic Plan: MAC: Disposition: Standard PACU
--- OUTSIDE RECORDS SUMMARY | 2024-04-15 06:02 | XMS_ITS | Continuity of Care Document ---
Author Organization [facility] Address [address] [place] [address] Phone Care Team Providers Care Transition Of Care Specialist Name Role Phone Michelle Smith APN Unavailable Unavailable Medications Medication Instructions Dosage Effective Dates (start - stop) Status Comments Macrobid 100 mg capsule take 1 capsule b y oral route every 12 hours with food 100 MG - Active phenazopyridine 200 mg tablet take 1 tablet by oral route 3 times every day after meals 200 MG - Active Procedures Procedure Date Urinalysis, non-automated, w/scope Office/outpatient visit,silva rodas 2016 Advance Directives Directive Yes / No Effective Date File Name No Information Encounters Encounter Description Practice Location Reason(s) For Visit Diagnoses Date Provider Office/outpati ent visit,[facility], [facility], [address], [place], [facility], tel:[phone] [facility] bladder pain and spasms (chief complaint) Encounter for screening, unspecifiedAcute cystitis with hematuriaElevated BP without diagnosis of hypertensionBody mass index (BMI) 29.0-29.9, adult Sarah Ortiz5 Alek Elena, [id number] [address] [place] [address], [address], [place]. tel:[phone] Family History Family Member Type Diagnosis Age At Onset No Information Payers Payer name Insurance type Covered alliance party ID Authortima tiashlyn(s) Medicare NGS MB [id number] Social History Type Description Quantity Date Captured Comments Alcohol Use Details Caffeine Use Details coffee and soda 7 Tobacco Use Status Current non-smoker 18 Smoking Status Never smoker Non-Smoking Tobacco Use Details : No Details Available : No Details Available Sex Female Gender Identity Female Vital Signs Date / Time: Height Weight BMI Pulse Rate Blood Pressure Temperature Respiratory Rate Body Surface Area Head Circumference Head Circ. Percentile Wt./Giovanni. Percentile BMI percentile Pulse Ox Inhaled Ox 1:02 PM 59.00 in 66.678 kg (147.00 lbs) 29.6 9 kg/m eter (2) 95 /min 126/90 mm[Hg] 97.20 F 18 /min 1.67 meter(2) Chief Complaint And Reason For Visit From encounter dated '04/25/2017 12:50'. bladder pain and spasms (chief complaint). Description: She states the symptoms are acute and have worsened. pt presents c/o urinary burning and pain for 3 days , office ua dip pos for nitrates, blood and leuk History Of Present Illness Encounter Date Complaint History Of Prese nt Illness bladder pain and spasms She stat es the symptoms are acute and have worsened. pt presents c/o urinary burning and pain for 3 days , office ua dip pos for nitrates, blood and leuk Instructions Date Instruction Additional Infor mation wt controllaw dalt d ietno canned food or processed foodexercisebp check in 2 weeksschedule well visit Related to Elevated BP without diagnosis of hypertension dx educationmeds edu cationni bubble baths or sexwipe front to back and void after sexmedication orderedincrease PO water Related to Acute cystitis with hematuria Assessments Type Assessment Date assessment Encounter for screening, unspeci fied assessment Acute cystitis with hematuria De assessment Elevated BP without diagnosis of hypertension assessment Body mass index (BMI) 29.0-29.9, adult Mental Status Date Cognitive Assessment Orientation - Dennis ed to time, place, person, situation.
[2024-04-15 07:00] VITALS: BMI 27.3
[2024-04-15 07:08] VITALS: BP 116/73; PULSE 77; RESP 16; TEMP 36.6; O2SAT 97
[2024-04-15] MEDS: Lactated Ringers 1,000 ML 100 ML IVCONT (07:36)
--- NOTE | 2024-04-15 08:00 | MHC.SHP ---
Pre-Procedural Eval Section A - 24 Hr Update-Section A only Date of Service: 04/15/24 Section B - Complete if H&P > 30 days Chief Complaint: Fam hx of polyps Details of Present Illness: LOUISE I (cervical intraepithelial neoplasia I) Hypertension Insomnia Anxiety Bipolar 1 disorder Hypothyroid Surgical History Hx of cholecystectomy Tubal ligation status Present Medications: see Short Stay Collaborative assessment Allergies: Allergies Allergy/AdvReac Type Severity Reaction Status Date / Time No Known Allergies Allergy Verified 04/15/24 07:13 Review of Systems Review of Systems Comment: Ten point ROS negative Exam Exam Comment: Gen appear: No acute distress HEENT: no icterus Chest: No overt resp distress Abd: soft, nontender, nondistended Psych: Stable affect, answering questions appropriately Neuro: A/Ox3 noted to move all extremities spontaneously Ext: no peripheral edema Plan Diagnosis/Plan: Unchanged I have reviewed the history and physical and performed a pertinent physical examination on my patient. No changes have occurred unless specified. Time Spent With Patient Time: Total time managing care of this patient today ____ minutes.
--- NOTE | 2024-04-15 08:32 | P.OPN-COLO_ITS ---
Colonoscopy Operative Note Operative Note Date of Service: 04/15/24 Narrative: Procedure: Colonoscopy Indication: Family hx of colon polyps Endoscopist: Sera Rich MD Anesthesia Provider: Juancho Anesthesia type: MAC Instrument: Olympus [id number]-H190L Consent: Indication, risks vs benefits, and alternatives were discussed with the patient who gave written informed consent to proceed. EKG, pulse, pulse oximetry and blood pressure were monitored throughout the procedure. Please see anesthesia flowsheet. Procedure: The patient was brought to the procedure room and placed in the left lateral decubitus position. IV medications were administered by the anesthesia provider in attendance. A digital rectal exam was performed which was normal. A distal attachment cap was affixed to the tip of the colonoscope which was then inserted through the anus and advanced through the colon to the cecum at 80 cm,and terminal ileum. Appendiceal orifice and ileocecal valve were identified. Mucosa was carefully examined under high definition white light as the instrument was slowly withdrawn in a retrograde panoramic fashion. Retroflexion was performed in rectum. The procedure was not difficult. There were no immediate obvious complications. b The quality of the prep was BBPS: 2+3+2 = adequate Withdrawal time 7 minutes. Limitations: No limitations. Findings: Mucosa: Normal to cecum and terminal ileum. Protruding lesions: * Medium internal hemorrhoids without stigmata of recent bleeding. Excavated lesions: * Scattered diverticulosis of sigmoid colon. Impression: 1. Normal colon and terminal ileum mucosa 2. Diverticulosis 3. Internal hemorrhoids Recommendations: - Repeat colonoscopy in 5 years if her son had advanced adenomas
[2024-04-15 08:35] VITALS: BP 110/66; PULSE 95; RESP 16; TEMP 36.2; O2SAT 99
[2024-04-15 08:50] VITALS: BP 125/73; PULSE 68; RESP 18; TEMP 36.6; O2SAT 97
== END 2024-04-15 09:13 | disposition home or self-care (01) ==
PROVIDERS: Visit Provider Internal Medicine
PROC: 0DJD8ZZ Inspection of Lower Intestinal Tract, Via Natural or Artificial Opening Endoscopic (ICD-10-PCS; CPT 45378; principal; 2024-04-15 07:30)
DX: Z12.11 Encounter for screening for malignant neoplasm of colon (principal); K57.30 Diverticulosis of large intestine without perforation or abscess without bleeding; K64.8 Other hemorrhoids; Z86.0101 Personal history of adenomatous and serrated colon polyps; I10 Essential (primary) hypertension; E03.9 Hypothyroidism, unspecified; N87.0 Mild cervical dysplasia; Z90.49 Acquired absence of other specified parts of digestive tract; Z98.51 Tubal ligation status
CPT/HCPCS: G0105; J2704

== ENCOUNTER → 2024-04-15 06:00 | Outpatient (BNV) | payer OTHER, SELFPAY | PROVIDERS: Visit Provider Internal Medicine | DX: Z12.11 Encounter for screening for malignant neoplasm of colon (principal); Z83.719 Family history of colon polyps, unspecified; K57.30 Diverticulosis of large intestine without perforation or abscess without bleeding; K64.8 Other hemorrhoids | CPT/HCPCS: G0105 ==

== ENCOUNTER 2024-07-04 09:55 | Outpatient (REF) | payer OTHER, SELFPAY ==
--- OUTSIDE RECORDS SUMMARY | 2024-07-04 11:00 | XMS_ITS | Encounter Summary ---
Author Organization [employer] [facility] Address [address] [place] [address] Care Team Providers Care Senior Capital Markets Specialist Name Role Phone Maddy Grossman MD Primary Care Provider + Reason for Visit * Reason Onset Date Comments Chart prep 07/01/2024 Encounter Details Date Type Department Care Team (Late st Contact Info) Description 07/01/2024 Telephone [facility] [address], [place] [phone] Maddy Grossman MD [address] [place] [address] Chart prep Social History Tobacco Use Types Packs/Day Years Used Date Smoking Tobacco: Never Assessed Comments Unknown Sex and Gender Information Value Date Recorded Sex Assigned at Female 02/27/2022 10:32 AM EDT Legal Sex Female 10:32 AM EDT Gender Identity Female 02/27/2022 10:32 AM EDT Sexual Orientation Straight 02/27/2022 10 :32 AM EDT documented as of this encounter Miscellaneous Notes * Telephone Encounter - Lalitha Landaverde [place] - 07/01/2024 10:30 AM EST Chart Prep Labs: done Images: done Vaccines due: yes Referrals: complete Screenings: colonoscopy Overdue care gaps: SDOH, PHQ-9 documented in this encounter Plan of Treatment Upcoming Encounters Date Type Department Care Team (Late st Contact Info) Description 09/12/2024 12:15 PM EDT Office Visit [facility] [address] [place] [phone] Maddy Grossman MD [address] [place] [address] documented as of this encounter Visit Diagnoses Not on filedocumented in this encounter Care Teams Senior Capital Markets Specialist Relationship Specialty Start Date End Date Maddy Grossman MD [address] [place] [id number] PCP - General Internal Medicine 11/22/23 documented as of this encounter
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
--- OUTSIDE RECORDS SUMMARY | 2024-07-04 11:00 | XMS_ITS | Encounter Summary ---
Author Organization [facility] Address [address] [place] [address], [place] [address] Care Team Providers Care Strategic Client Executive Name Role Phone Maddy Grossman MD Primary Care Provider + Reason for Visit * Reason Onset Date Comments Appointment Request 02/05/2024 Encounter Details Date Type Department Care Team (Late st Contact Info) Description 02/05/2024 Telephone [facility] MEDICINE [address] [place] [phone] Maddy Grossman MD [address] [place] [phone] Appointment Request Social History Tobacco Use Types Packs/Day Years Used Date Smoking Tobacco: Never Assessed Comments Unknown Sex and Gender Information Value Date Recorded Sex Assigned at Female 02/27/2022 10:32 AM EDT Legal Sex Female 10:32 AM EDT Gender Identity Female 02/27/2022 10:32 AM EDT Sexual Orientation Straight 02/27/2022 10 :32 AM EDT documented as of this encounter Miscellaneous Notes * Telephone Encounter - Layton Allred - 02/05/2024 3:31 PM EDT Tc from patient calling to reschedule a TP appt however there was no availability documented in this encounter Plan of Treatment Upcoming Encounters Date Type Department Care Team (Late st Contact Info) Description 09/12/2024 12:15 PM EDT Office Visit [facility] [address] [place] [phone] Maddy Grossman MD [address] [place] [address] documented as of this encounter Visit Diagnoses Not on filedocumented in this encounter Care Teams Strategic Client Executive Relationship Specialty Start Date End Date Maddy Grossman MD [address] [place] [phone] PCP - General Internal Medicine 11/22/23 documented as of this encounter
--- OUTSIDE RECORDS SUMMARY | 2024-07-04 11:00 | XMS_ITS | Encounter Summary ---
Author Organization [employer] Address [address] [facility] [address] [place] [address] Care Team Providers Care Credit Card Interviewer Name Role Phone Maddy Grossman MD Primary Care Provider + Encounter Details Date Type Department Care Team (Latest Contact Info) Description 07/04/2024 Travel Social History Tobacco Use Types Packs/Day Years Used Date Smoking Tobacco: Never Passive Smoke Exposure: Never Smokeless Tobacco: Never Alcohol Use Standard Drinks/Week Comments Never 0 (1 standard drink = 0.6 oz pur e alcohol) Depression Answer Date Recorded Patient Health Questionnaire-9 Score 0 07/04/2024 Patient Health Questionnaire-9 Score 0 07/04/2024 Last PHQ-9: Questionnaire Data Not on file 0 07/04/2024 Housing Stability Answer Date Recorded What is your housing situation today? I have adalbertoaracelis parrish 07/04/[address] you [...] AM EDT documented as of this encounter Plan of Treatment Upcoming Encounters Date Type Department Care Team (Late st Contact Info) Description 09/12/2024 12:15 PM EDT Office Visit [facility] MEDICINE [address] [place] [phone] Maddy Grossman MD [address] [place] [phone] documented as of this encounter Visit Diagnoses Not on filedocumented in this encounter Additional Health Concerns Assessment Noted Time PHQ-9 Depression Total Score: 0 07/05/19 25 8:55 AM EST documented as of this encounter Care Teams Credit Card Interviewer Relationship Specialty Start Date End Date Maddy Grossman MD [address] [place] [phone] PCP - General Internal Medicine 11/22/23 documented as of this encounter
--- OUTSIDE RECORDS SUMMARY | 2024-07-04 11:00 | XMS_ITS | Encounter Summary ---
Author Organization [employer] Address [address] [facility] 7 [place] [address] Care Team Providers Care Supervisor Lathing Name Role Phone Maddy Grossman MD Primary Care Provider + Reason for Visit * Reason Comments Pre-visit Planning SDOH unable to reach , number not in service. Encounter Details Date Type Department Care Team ([facility] st Contact Info) Description 06/27/2024 Patient Outreach [facility] [address] [place] [address] Maddy Grossman MD [address] [place] [address] Pre-visit Planning (SDOH unable to reach, number not in service. ) Social History Tobacco Use Types Packs/Day Years Used Date Smoking Tobacco: Never Assessed Comments Unknown Sex and Gender Information Value Date Recorded Sex Assigned at Female 02/27/2022 10:32 AM EDT Legal Sex Female 10:32 AM EDT Gender Identity Female 02/27/2022 10:32 AM EDT Sexual Orientation Straight 02/27/2022 10 :32 AM EDT documented as of this encounter Progress Notes * Ana Herr - 06/27/2024 10:22 AM EST MIL Cardenas placed outbound call to patient to complete pre-visit planning. No answer at this time. Patient name and were not confirmed. CC unable to leave a message due to number not in service documented in this encounter Plan of Treatment Upcoming Encounters Date Type Department Care Team (Late st Contact Info) Description 09/12/2024 12:15 PM EDT Office Visit [facility] MEDICINE [address] [place] [address] Maddy Grossman MD [address] [place] [address] documented as of this encounter Visit Diagnoses Not on filedocumented in this encounter Care Teams Supervisor Lathing Relationship Specialty Start Date End Date Maddy Grossman MD [address] [place] [phone] PCP - General Internal Medicine 11/22/23 documented as of this encounter
--- OUTSIDE RECORDS SUMMARY | 2024-07-04 11:01 | XMS_ITS | Encounter Summary ---
Author Organization [employer] [facility] Address [address] [facility] [address] [place] [address] Care Team Providers Care Derrick Boat Operator Name Role Phone Mahogany Quevedo NP Primary Care Provider [phone] Maddy Grossman MD Primary Care Provider + Reason for Visit * Reason Comments Med Refill Encounter Details Date Type Department Care Team (Late st Contact Info) Description 07/11/2023 Refill [facility]INE [address] [place] [address] [facility] [address] [place] [address] Other chronic pain Social History Tobacco Use Types Packs/Day Years Used Date Smoking Tobacco: Never Assessed Comments Unknown Sex and Gender Information Value Date Recorded Sex Assigned at Female 02/27/2022 10:32 AM EDT Legal Sex Female 10:32 AM EDT Gender Identity Female 02/27/2022 10:32 AM EDT Sexual Orientation Straight 02/27/2022 10 :32 AM EDT documented as of this encounter Miscellaneous Notes * Telephone Encounter - Mahogany Quevedo NP - 07/11/2023 5:11 PM EDT Approving, but needs appt for additional refills. documented in this encounter Plan of Treatment Upcoming Encounters Date Type Department Care Team (Late st Contact Info) Description 09/12/2024 12:15 PM EDT Office Visit [facility] MEDICINE [address] [place] [address] Maddy Grossman MD [address] [place] [address] documented as of this encounter Visit Diagnoses Diagnosis Other chronic pain documented in this encounter Care Teams Derrick Boat Operator Relationship Specialty Start Date End Date Mahogany Quevedo NP [address] [place] [address] PCP - General Family Medicine 06/06/23 08/21/23 Maddy Grossman MD [address] [place] [address] PCP - General Internal Medicine 11/22/23 documented as of this encounter
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
--- OUTSIDE RECORDS SUMMARY | 2024-07-04 11:01 | XMS_ITS | Encounter Summary ---
Author Organization [facility] Address [address] [place] [address], [place] [address] Care Team Providers Care Hazmat Tanker Driver Name Role Phone Lindsey Yu [facility] Primary Care Provider [phone] Mahogany Quevedo HORSE IDENTIFIER Primary Care Provider [phone] Maddy Grossman MD Primary Care Provider + Reason for Visit * Reason Comments Med Refill Encounter Details Date Type Department Care Team (Late st Contact Info) Description 10/19/2022 Refill [facility] [address] [place] [address] [facility] [address] [place] [address] Dyspepsia Social History Tobacco Use Types Packs/Day Years [...] Description 09/12/2024 12:15 PM EDT Office Visit [facility] [address] [place] [address] Maddy Grossman MD [address] [place] [address] documented as of this encounter Visit Diagnoses Diagnosis Dyspepsia Dyspepsia and other specified disorders of function of stomach documented in this encounter Care Teams Hazmat Tanker Driver Relationship Specialty Start Date End Date Lindsey Yu [facility] [address] [place] [address] PCP - General Family Medicine 03/27/22 06/05/23 Mahogany Quevedo NP [address] [place] [address] PCP - General Family Medicine 06/06/23 08/21/23 Maddy Grossman MD [address] [place] [phone] PCP - General Internal Medicine 11/22/23 documented as of this encounter
--- OUTSIDE RECORDS SUMMARY | 2024-07-04 11:01 | XMS_ITS | Clinical Summary ---
Author Organization [employer] [facility] it Address [address] [place] [address] Care Team Providers Care Master Technician Name Role Phone Unavailable Primary Care Provider Unavailabl e Social History Tobacco Use Types Packs/Day Years Used Date Smoking Tobacco: Never Assessed Comments Unknown Sex and Gender Information Value Date Recorded Sex Assigned at Not on file Legal Sex Female 4:09 PM EST Gender Identity Not on file Sexual Orientation Not on file Plan of Treatment Health Maintenance Due Date Last Done Comments Breast Cancer Screening 1971 DTaP,Tdap,and Td Vaccines (1 - Tdap) 08/28/1990 Hepatitis B Vaccines (1 of 3 - 19+ 3-dose series) 08/28/1990 Cervical Cancer Screening: P ap Smear 08/28/1992 Pneumococcal Vaccine: 50+ Ye ars (1 of 1 - PCV) 08/28/2021 Zoster Vaccines (1 of 2) 08/28/2021 Colorectal Cancer Screening: Colonoscopy 11/27/2023 Depression Screening 11/27/2023 HIV Screening 11/27/2023 Hepatitis C Screening 11/27/2023 Social Influencers of Health Screening 11/27/2023 COVID-19 Vaccine ( - 2023-2 5 season) 2023 Influenza Vaccine (#1) 2023 HIB Vaccines Aged Out No longer eligi [...] on patient's age to complete this topic MMR Vaccines Aged Out No longer eligi ble based on patient's age to complete this topic Meningococcal ACWY Vaccine Aged Out N o longer eligible based on patient's age to complete this topic Meningococcal B Vacine Aged Out No lo nger eligible based on patient's age to complete this topic Pneumococcal Vaccine: Pediat rics (0 to 5 Years) and At-Risk Patients (6 to 64 Years) Aged Out No longer eligible b ased on patient's age to complete this topic RSV Immunization Patients Un dario 20 months Aged Out No longer eligible b ased on patient's age to complete this topic Varicella Vaccines Aged Out No longer eligible based on patient's age to complete this topic
--- OUTSIDE RECORDS SUMMARY | 2024-07-04 11:01 | XMS_ITS | Encounter Summary ---
Author Organization [facility] Address [address] [place] [address] [address], [place] [address] Care Team Providers Care Jewel Oliving Machine Operator Name Role Phone Mahogany Quevedo NP Primary Care Provider [phone] Maddy Grossman MD Primary Care Provider + Reason for Visit * Reason Comments Med Refill Encounter Details Date Type Department Care Team (Late st Contact Info) Description 07/04/2023 Refill [facility] [address] [place] [address] [facility] [address] [place] [address] Other chronic pain Social History Tobacco Use [...] 12:15 PM EDT Office Visit [facility] [address] [place] [phone] Maddy Grossman MD [address] [place] [address] documented as of this encounter Visit Diagnoses Diagnosis Other chronic pain documented in this encounter Care Teams Jewel Oliving Machine Operator Relationship Specialty Start Date End Date Mahogany Quevedo NP [address] [place] [address] PCP - General Family Medicine 06/06/23 08/21/23 Maddy Grossman MD [address] [place] [address] PCP - General Internal Medicine 11/22/23 documented as of this encounter
--- OUTSIDE RECORDS SUMMARY | 2024-07-04 11:01 | XMS_ITS | Encounter Summary ---
Author Organization [employer] Address [address] [facility] [address] [place] [address] Care Team Providers Care Gunner'S Mate G Name Role Phone Lindsey Yu REPAIR TECH Primary Care Provider [phone] Mahogany Quevedo GRADING MACHINE OPERATOR Primary Care Provider [phone] Maddy Grossman MD Primary Care Provider + Encounter Details Date Type Department Care Team (Late st Contact Info) Description 01/22/2023 Orders Only [facility] [address] [place] [address] Dalia Gallegos Social History Tobacco Use Types Packs/Day Years [...] Description 09/12/2024 12:15 PM EDT Office Visit [facility] [address] [place] [address] [phone] Maddy Grossman MD [address] [place] [phone] documented as of this encounter Procedures Procedure Name Priority Date/Time Associated Diagnosis Comments THINPREP PAP AND HPV MRNA E6/E7 Routine 07/01/2020 12:00 AM EST documented in this encounter Results * Thinprep PAP and HPV nRNA E6/E7 (07/01/2020 12:00 AM EST) us Historical Provider LAB PATHOLOGY ORDERABLES Final Result documented in this encounter Visit Diagnoses Not on filedocumented in this encounter Care Teams Gunner'S Mate G Relationship Specialty Start Date End Date Lindsey Yu FNP [address] [place] [phone] PCP - General Family Medicine 03/27/22 06/05/23 Mahogany Quevedo NP [address] [place] [phone] PCP - General Family Medicine 06/06/23 08/21/23 Maddy Grosmsan MD [address] [place] [id number] PCP - General Internal Medicine 11/22/23 documented as of this encounter
--- OUTSIDE RECORDS SUMMARY | 2024-07-04 11:01 | XMS_ITS | Continuity of Care Document ---
Author Organization [facility] Address [address] [place] [address] Phone Care Team Providers Care Brake Drum Lathe Operator Name Role Phone Michelle Smith APN Unavailable [...] For Visit Diagnoses Date Provider Office/outpati ent visit,[facility], [facility], [address] [place], [place], [facility], tel:[phone] 00 [facility] bladder pain and spasms (chief complaint) Encounter for screening, unspecifiedAcute cystitis with hematuriaElevated BP without diagnosis of hypertensionBody mass index (BMI) 29.0-29.9, adult Sarah Ortiz5 Alek Elena, [id number] [address] [place] [address], [address], [place]. tel:[phone] Family History Family Member Type Diagnosis Age At Onset No Information Payers Payer name Insurance type Covered green party ID Authortima tiashlyn(s) Medicare NGS MB [id number] Social History Type Description Quantity Date Captured [...] Mental Status Date Cognitive Assessment Orientation - [place] ed to time, place, person, situation.
[2024-07-04 11:37] LABS: MANUAL DIFF FLAG NO
[2024-07-04 11:45] LABS: Basophils Absolute Auto 0.1 X10*3/uL (0.0-0.2); Basophils Percent Auto 0.7 % (0-2); Eosinophils Absolute Auto 0.1 X10*3/uL (0.0-0.4); Eosinophils Percent Auto 1.9 % (0-4); Hematocrit 41.9 % (37.0-47.0); Hemoglobin 13.8 g/dl (12.0-16.0); Imm Gran Abs Auto 0.02 X10*3/uL (0.00-0.03); Imm Gran Pct Auto 0.3 % (0.0-0.4); Lymphocytes Absolute Auto 2.9 X10*3/uL (1.2-4.9); Lymphocytes Percent Auto 39.3 % (20-40); Mean Corpuscular HGB Conc 32.9 g/dl (31.0-35.0); Mean Corpuscular Hemoglobin 29.1 pg (27.0-33.0); Mean Corpuscular Volume 88.4 fL (80.0-98.0); Monocytes Absolute Auto 0.5 X10*3/uL (0.1-1.2); Monocytes Percent Auto 6.7 % (2-11); Neutrophils Absolute Auto 3.8 x10*3/uL (2.0-8.3); Neutrophils Percent Auto 51.1 % (45-73); Platelet Count 286 X10*3/uL (160-400); Red Blood Count 4.74 X10*6/uL (4.20-5.50); Red Cell Distribution Width 12.5 % (11.0-16.0); White Blood Count 7.5 X10*3/uL (4.8-10.8)
[2024-07-04 12:07] LABS: Alanine Aminotransferase 20 U/L (0-31); Albumin Level 4.2 g/dL (3.5-5.0); Alkaline Phosphatase 95 U/L (39-117); Anion Gap 10 (12-20); Aspartate Amino Transferase 30 U/L (5-31); Bilirubin Total 0.3 mg/dL (0.0-1.0); Blood Urea Nitrogen 12 mg/dL (9-16); Calcium 9.6 mg/dL (8.4-10.2); Carbon Dioxide 30 mmol/L (22-29); Chloride 105 mmol/L (96-108); Cholesterol 224 mg/dL (<200); Estimated Glomerular Filt Rate 55; Glucose Random 87 mg/dL (60-115); HDL Cholesterol 47 mg/dL (>40); LDL Cholesterol Calculated 123 mg/dL (<100); Potassium 4.4 mmol/L (3.3-5.1); Sodium 141 mmol/L (135-145); Total Protein 8.3 g/dL (6.5-8.0); Triglycerides 272 mg/dL (<150)
[2024-07-04 12:24] LABS: TSH reflex Free T4 0.19 uIU/mL (0.32-4.0); Vitamin D 25-OH Total 46.3 ng/mL (>30)
[2024-07-04 12:47] LABS: HBS Num1 241.29 mIU/mL (0-7.99); HBc Num1 0.08 S/CO (0.00-0.79); HBsAGNum1 0.38 S/CO (0.00-0.99); HIV AB/AG Nonreactive (Nonreactive); HIV Num 1 0.05 S/CO (0.00-0.99); Hepatitis A Antibody IgM 0.17 Index (0-0.79); Hepatitis B Core Antibody Nonreactive (Nonreactive); Hepatitis B Surface Antigen Negative (Negative); Syphilis Screen Nonreactive (Nonreactive); ~Hepatitis A Antibody IgM Nonreactive (Nonreactive); ~Hepatitis B Surface Antibody REACTIVE (Nonreactive); ~Hepatitis C Antibody Nonreactive (Nonreactive)
[2024-07-04 12:50] LABS: Reflex LDLD? No
[2024-07-04 13:25] LABS: Free T4 (Free Thyroxine) 1.16 ng/dL (0.71-1.85)
[2024-07-04 14:54] LABS: Bacterial Vaginosis PCR NEGATIVE (Negative); Candida Group PCR NOT DETECTED (Not Detect); Candida glab krusei PCR NOT DETECTED (Not Detect); Trichomonas vaginalis PCR NOT DETECTED (Not Detect)
[2024-07-04 15:25] LABS: CT PCR NOT DETECTED (Not Detect.); NG PCR NOT DETECTED (Not Detect.)
[2024-07-07 23:19] LABS: Mumps Virus IgG Antibody >300.00 AU/mL; Rubella IgG Antibody 6.02 Index; Rubeola IgG (Measles) >300.00 AU/mL
== END 2024-07-04 09:56 | disposition home or self-care (01) ==
LOC: HO.HHCL 09:55
PROVIDERS: Visit Provider Internal Medicine
DX: R30.0 Dysuria (principal); E78.49 Other hyperlipidemia; E03.8 Other specified hypothyroidism; I10 Essential (primary) hypertension; F41.1 Generalized anxiety disorder
CPT/HCPCS: 36415; 80053; 80061; 81515; 82306; 84439; 84443; 85025; 86704; 86706; 86709; 86735; 86762; 86765; 86780; 86803; 87340; 87389; 87491; 87591

== ENCOUNTER 2024-09-01 12:36 | Outpatient (REF) | payer OTHER, SELFPAY ==
--- OUTSIDE RECORDS SUMMARY | 2024-09-01 14:44 | XMS_ITS | Encounter Summary ---
Author Organization [employer] [facility] Address [address] [place] [address] Care Team Providers Care Catalyst Supervisor Name Role Phone Maddy Grossman MD Primary Care Provider + Reason for Visit * Reason Onset Date Comments Appointment Request 02/05/2024 Encounter Details Date Type Department Care Team (Late st Contact Info) Description 02/05/2024 Telephone [facility] MEDICINE [address] [place] [address] [phone] Maddy Grossman MD [address] [place] [phone] Appointment Request Social History Tobacco Use Types [...] Description 09/12/2024 12:15 PM EDT Office Visit [facility] MEDICINE [address] [place] [address] [phone] Maddy Grossman MD [address] [place], [place] [phone] documented as of this encounter Visit Diagnoses Not on filedocumented in this encounter Care Teams Catalyst Supervisor Relationship Specialty Start Date End Date Maddy Grossman MD [address] [place], [place] [phone] PCP - General Internal Medicine 11/22/23 documented as of this encounter
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
--- OUTSIDE RECORDS SUMMARY | 2024-09-01 14:44 | XMS_ITS | Clinical Summary ---
Author Organization [employer] [facility] it Address [address] [place] [address] Care Team Providers Care Safety Deposit Clerk Name Role Phone Unavailable Primary Care Provider [...]
--- OUTSIDE RECORDS SUMMARY | 2024-09-01 14:44 | XMS_ITS | Encounter Summary ---
Author Organization [facility] [facility] Address [address] [place] [address] 7 [place] [address] Care Team Providers Care Broadcast Engineer Name Role Phone Mahogany Quevedo NP Primary Care Provider [phone] Maddy Grossman MD Primary Care Provider + Reason for Visit * Reason Comments Med Refill Encounter Details Date Type Department Care Team (Late st Contact Info) Description 07/11/2023 Refill [facility] MED[facility]INE [address] [place] [address] [facility] [address] [place] [address] Other chronic pain Social History Tobacco Use [...] Description 09/12/2024 12:15 PM EDT Office Visit [facility] [address] [place] [address] Maddy Grossman MD 230 [place] [address] documented as of this encounter Visit Diagnoses Diagnosis Other chronic pain documented in this encounter Care Teams Broadcast Engineer Relationship Specialty Start Date End Date Mahogany Quevedo NP [address] [place] [address] PCP - General Family Medicine 06/06/23 08/21/23 Maddy Grossman MD [address] [place] [address] PCP - General Internal Medicine 11/22/23 documented as of this encounter
--- OUTSIDE RECORDS SUMMARY | 2024-09-01 14:44 | XMS_ITS | Encounter Summary ---
Author Organization [facility] Address [address] [place] [address] Care Team Providers Care Bird Trapper Name Role Phone Lindsey Yu [facility] Primary Care Provider [phone] Mahogany Quevedo NP Primary Care Provider [phone] Maddy Grossman MD Primary Care Provider + Reason for Visit * Reason Comments Med Refill Encounter Details Date Type Department Care Team (Late st Contact Info) Description 10/19/2022 Refill [facility] MEDICINE [address] [place] [address] Lindsey Yu [facility] [address] [place] [address] Dyspepsia Social History Tobacco Use Types Packs/Day [...] Description 09/12/2024 12:15 PM EDT Office Visit [facility] [address] [place] [address] Maddy Grossman MD [address] [place] [address] documented as of this encounter Visit Diagnoses Diagnosis Dyspepsia Dyspepsia and other specified disorders of function of stomach documented in this encounter Care Teams Bird Trapper Relationship Specialty Start Date End Date Lindsey Yu [facility] [address] [place] [address] PCP - General Family Medicine 03/27/22 06/05/23 Mahogany Quevedo NP [address] [place] [address] PCP - General Family Medicine 06/06/23 08/21/23 Maddy Grossman MD [address] [place] [address] PCP - General Internal Medicine 11/22/23 documented as of this encounter
--- OUTSIDE RECORDS SUMMARY | 2024-09-01 14:44 | XMS_ITS | Encounter Summary ---
Author Organization [facility] Address [address] [place] [address] [address] [place] [address] Care Team Providers Care Poultry Picking Machine Tender Name Role Phone Lindsey Yu BRAKE ASSEMBLER Primary Care Provider [phone] Mahogany Quevedo FUNCTIONAL ANALYST Primary Care Provider [phone] Maddy Grossman MD Primary Care Provider + Encounter Details Date Type Department Care Team (Late st Contact Info) Description 01/22/2023 Orders Only [facility] MEDICINE [address] [place] [address] Dalia Gallegos Social History Tobacco Use Types [...] Description 09/12/2024 12:15 PM EDT Office Visit [facility] [address] [place] [address] Maddy Grossman MD [address] [place] [phone] documented as of this encounter Procedures Procedure Name Priority Date/Time Associated Diagnosis Comments THINPREP PAP AND HPV MRNA E6/E7 Routine 07/01/2020 12:00 AM EST documented in this encounter Results * Thinprep PAP and HPV nRNA E6/E7 (07/01/2020 12:00 AM EST) us Historical Provider LAB PATHOLOGY ORDERABLES Final Result documented in this encounter Visit Diagnoses Not on filedocumented in this encounter Care Teams Poultry Picking Machine Tender Relationship Specialty Start Date End Date Lindsey Yu FNP [address] [place] [address] PCP - General Family Medicine 03/27/22 06/05/23 Mahogany Quevedo NP [address] [place] [address] PCP - General Family Medicine 06/06/23 08/21/23 Maddy Grossman MD [address] [place] [address] PCP - General Internal Medicine 11/22/23 documented as of this encounter
--- OUTSIDE RECORDS SUMMARY | 2024-09-01 14:44 | XMS_ITS | Encounter Summary ---
Author Organization [employer] [facility] Address [address] [place] [address] [address], [place] [address] Care Team Providers Care Supply Chain Engineer Name Role Phone Mahogany Quevedo NP Primary Care Provider [phone] Maddy Grossman MD Primary Care Provider + Reason for Visit * Reason Comments Med Refill Encounter Details Date Type Department Care Team (Late st Contact Info) Description 07/04/2023 Refill [facility] [address] [place] [address] [facility] [address] [place] [address] Other chronic pain Social History Tobacco Use [...] 12:15 PM EDT Office Visit [facility] [address] [place] [address] Maddy Grossman MD [address] [place] [address] documented as of this encounter Visit Diagnoses Diagnosis Other chronic pain documented in this encounter Care Teams Supply Chain Engineer Relationship Specialty Start Date End Date Mahogany Quevedo NP 230 [place] [address] PCP - General Family Medicine 06/06/23 08/21/23 Maddy Grossman MD 230 [place] [address] PCP - General Internal Medicine 11/22/23 documented as of this encounter
== END 2024-09-01 12:37 | disposition home or self-care (01) ==
LOC: HO.LAB 12:36
PROVIDERS: Visit Provider Obstetrics & Gynecology
DX: Z01.419 Encounter for gynecological examination (general) (routine) without abnormal findings (principal); R10.2 Pelvic and perineal pain; R31.29 Other microscopic hematuria
CPT/HCPCS: 81003; 87086; 87626; 88175; 99212; 99396; 99459

== ENCOUNTER 2024-09-01 12:36 | Outpatient (AMB) | payer OTHER, SELFPAY ==
--- NOTE | 2024-09-01 12:55 | A.OFFVIS_ITS ---
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 Complaining of burning on urination and for urinary frequency Last Pap/HPV was negative in 07/18 Last Mammogram was BI-RADS 1 in 07/21, next screening mammogram scheduled in 10/22 Last Colonoscopy was done in 04/22, the recommendation was to repeat in 5 years [facility] Medical History LOUISE I (cervical intraepithelial neoplasia I) Hypertension Insomnia Anxiety Bipolar 1 disorder Hypothyroid Surgical History Hx of dilation and curettage Hx of cholecystectomy Tubal ligation status Family History Paternal Aunt Breast CA Maternal Grandmother Stomach cancer Son Colon polyps Social History Household Members: None Housing: Apartment Alcohol intake: never Patient Tobacco Use Status: Never used Tobacco Current occupational status: unemployed Sexual orientation: Straight/Heterosexual Gender identity: Female Female Reproductive History Menstrual Age of Menarche: 14 control method: permanent sterilization Permanent Sterilization: BTL Total pregnancies: 2 Full term: 2 Number of Living Children: 2 Date of last pap smear: 07/01/20 (neg pap and hpv) Date of Mammogram: 07/06/23 Review of Systems Const All systems reviewed & are unremarkable except as noted in HPI and below Card Reports as per HPI Resp Reports as per HPI GI Reports as per HPI and Reports no additional complaints Reports as per HPI Physical Exam Vital Signs: Last Vital Signs BP 110/74 09/01/24 13:07 BMI result Body Mass Index 28.1 Const General: cooperative, healthy appearing and comfortable Chest Chest palpation & inspection: normal inspection of the chest and normal palpation of entire chest wall Breast/axilla inspection: normal inspection of the breasts and normal inspection of the axillae Breast/axilla palpation: normal palpation of the breasts, normal palpation of the axillae and no axillary lymphadenopathy Resp Effort & Inspection: normal respiratory effort Auscultation: clear to auscultation bilaterally Percussion: percussion normal Cardio Palpation: normal PMI Rate: regular rate Rhythm: regular rhythm Heart sounds: no murmurs and no rubs Peripheral pulses: Peripheral pulses 2+ throughout GI Inspection: Yes normal to inspection Palpation (GI): Soft to palpation, nontender, no guarding, not rigid and No hepatosplenomegaly present Percussion: Yes normal to percussion Auscultation: normal bowel sounds Rectal Exam - Female: deferred General: Yes bladder normal to palpation External Female Exam: No lesion Speculum Exam - Vagina: normal appearance of the vagina, normal palpation, normal vaginal discharge and not erythematous Speculum Exam - Cervix: normal appearance of the cervix and normal palpation Bimanual exam- vagina & uterus: normal bimanual exam, normal palpation, uterine size normal, bladder normal to palpation, consistency normal and normal palpation Bimanual Exam- Adnexa, other: normal adnexae, no masses and no tenderness Results AMB Urinalysis, Automated UA Leukoctes 1 Chintan/uL Last Edit by HOMERO Sams on 09/01/24 13:07 UA Nitrite Negative Last Edit by HOMERO Sams on 09/01/24 13:07 UA Urobilinogen 0 mg/dL Last Edit by HOMERO Sams on 09/01/24 13:0 7 UA Protein 0 mg/dL Last Edit by HOMERO Sams on 09/01/24 13:07 UA pH 6.0 Last Edit by HOMERO Sams on 09/01/24 13:07 UA Blood 1 Eyad/uL Last Edit by HOMERO Sams on 09/01/24 13:07 UA Specific Meherrin 1.010 Last Edit by HOMERO Sams on 09/01/24 13:07 UA Ketone Negative Last Edit by HOMERO Sams on 09/01/24 13:07 UA Bilirubin 0 mg/dL Last Edit by HOMERO Sams on 09/01/24 13:07 UA Glucose 0 mg/dL Last Edit by HOMERO Sams on 09/01/24 13:07 Results Reviewed Results Reviewed: Laboratory Last Values Urine pH (Auto) 6.0 09/01/24 13:06 Specific Meherrin (Auto) 1.010 09/01/24 13:06 Urine Protein (Auto) 0 mg/dL 09/01/24 13:06 Glucose (UA)(Auto) 0 mg/dL 09/01/24 13:06 Urine Ketones (Auto) Negative 09/01/24 13:06 Urine Blood (Auto) 1 Eyad/uL 09/01/24 13:06 Urine Nitrite (Auto) Negative 09/01/24 13:06 Urine Bilirubin (Auto) 0 mg/dL 09/01/24 13:06 Urine Urobilinogen (Auto) 0 mg/dL 09/01/24 13:06 Leukocyte Esterase (Auto) 1 Chintan/uL 09/01/24 13:06 Assessment & Plan Assessment & Plan (1) Well woman exam: Code(s): Z01.419 - Encounter for gynecological examination (general) (routine) without abnormal findings Category: Medical Plan: Co testing done. Counseled the patient about the recommended dietary allowance of 1200 mg of Calcium & 600 IU of vitamin D. Mammogram schedule in 10/22. The patient was instructed to perform monthly self-breast exams and schedule a nnual exam in a year. All questions answered and the patient verbalized understanding. (2) Microscopic hematuria: Code(s): R31.29 - Other microscopic hematuria Category: Medical Plan: Urine dip showed microscopic hematuria, urine culture sent. Will treat with Macrobid 100 mg p.o. b.i.d. for 5 days. Will repeat urine dip in 2 weeks. Discussed with the patient the possible causes of microscopic hematuria including but not limited to: interstitial cystitis, polyps, stones, masses, urethral inflammatory processes and others. If Urine Culture is negative and repeat urine dip in 2 weeks shows persistent microscopic hematuria, will proceed with CT abdomen/pelvis and urology referral. Instructions given the patient to schedule a 2 week urine dip follow-up appointment. All questions answered and the patient verbalized understanding. Orders: Orders AMB Urinalysis Automated Today R10.2 - Pelvic and perineal pain Medications: New nitrofurantoin monohyd/m-cryst 100 mg (Macrobid) 100 mg PO BID 5 days 10 caps 0RF Coding Level of Care Code Est Pt Level 3 (97992) Est Pt Prev Care 40-64y(48997) Diagnoses Well woman exam Z01.419 Microscopic hematuria R31.29
[2024-09-01 13:07] VITALS: BP 110/74; BMI 28.1
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
--- OUTSIDE RECORDS SUMMARY | 2024-09-01 14:04 | XMS_ITS | Clinical Summary ---
Author Organization [employer] [facility] it Address [address] [place] [phone] Care Team Providers Care Last Turner Name Role Phone Unavailable Primary Care Provider [...] Influencers of Health Screening 11/27/2023 COVID-19 Vaccine (1 - 2023-2 5 season) 2023 Influenza Vaccine (Season Ended) 2024 HIB Vaccines Aged Out No longer eligi [...] age to complete this topic Meningococcal B Vaccine Aged Out No l onger eligible based on patient's age to complete [...]
--- OUTSIDE RECORDS SUMMARY | 2024-09-01 14:04 | XMS_ITS | Encounter Summary ---
Author Organization [employer] [facility] Address [address] [place] [address] [address] [place] [address] Care Team Providers Care Taffy Puller Name Role Phone Mahogany Quevedo NP Primary Care Provider [phone] Maddy Grossman MD Primary Care Provider + Reason for Visit * Reason Comments Med Refill Encounter Details Date Type Department Care Team (Late st Contact Info) Description 07/11/[address] [facility] [address] [place] [address] [facility] [address] [place] [address] Other chronic pain Social History Tobacco Use [...] Description 09/12/2024 12:15 PM EDT Office Visit [facility] [address] [place] [address] Maddy Grossman MD [address] [place] [address] documented as of this encounter Visit Diagnoses Diagnosis Other chronic pain documented in this encounter Care Teams Taffy Puller Relationship Specialty Start Date End Date Mahogany Quevedo NP [address] [place] [address] PCP - General Family Medicine 06/06/23 08/21/23 Maddy Grossman MD [address] [place] [phone] PCP - General Internal Medicine 11/22/23 documented as of this encounter
--- OUTSIDE RECORDS SUMMARY | 2024-09-01 14:04 | XMS_ITS | Encounter Summary ---
Author Organization [employer] [facility] Address [address] [place] [address] 7[place] [address] Care Team Providers Care Mailhouse Operator Name Role Phone Mahogany Quevedo NP Primary Care Provider [phone] Maddy Grossman MD Primary Care Provider + Reason for Visit * Reason Comments Med Refill Encounter Details Date Type Department Care Team (Late st Contact Info) Description 07/04/2023 Refill [facility] MEDICINE [address] [place] [phone] [facility] [address] [place] [address] Other chronic pain Social History Tobacco Use [...] Description 09/12/2024 12:15 PM EDT Office Visit [facility] MEDICINE [address] [place] [phone] Maddy Grossman MD [address] [place] [address] documented as of this encounter Visit Diagnoses Diagnosis Other chronic pain documented in this encounter Care Teams Mailhouse Operator Relationship Specialty Start Date End Date Mahogany Quevedo NP [address] [place] [address] PCP - General Family Medicine 06/06/23 08/21/23 Maddy Grossman MD [address] [place] [address] PCP - General Internal Medicine 11/22/23 documented as of this encounter
--- OUTSIDE RECORDS SUMMARY | 2024-09-01 14:04 | XMS_ITS | Encounter Summary ---
Author Organization [facility] [facility] Address [address] [place] [address] Care Team Providers Care Seed Cleaner Operator Name Role Phone Maddy Grossman MD Primary Care Provider + Reason for Visit * Reason Onset Date Comments Appointment Request 02/05/2024 Encounter Details Date Type Department Care Team (Late st Contact Info) Description 02/05/2024 Telephone [facility] MEDICINE [address] [place] [address] [phone] Maddy Grossman MD [address] [place] [phone] Appointment Request Social History Tobacco Use Types [...] Description 09/12/2024 12:15 PM EDT Office Visit [facility] MEDICINE [address] [place] [address] [phone] Maddy Grossman MD [address] [place], [place] [phone] documented as of this encounter Visit Diagnoses Not on filedocumented in this encounter Care Teams Seed Cleaner Operator Relationship Specialty Start Date End Date Maddy Grossman MD [address] [place], [place] [phone] PCP - General Internal Medicine 11/22/23 documented as of this encounter
--- OUTSIDE RECORDS SUMMARY | 2024-09-01 14:04 | XMS_ITS | Encounter Summary ---
Author Organization [facility] Address [address] [place] [address] Care Team Providers Care Plant Engineering Manager Name Role Phone Lindsey Yu [facility] Primary Care Provider [phone] Mahogany Quevedo NP Primary Care Provider [phone] Maddy Grossman MD Primary Care Provider + Reason for Visit * Reason Comments Med Refill Encounter Details Date Type Department Care Team (Late st Contact Info) Description 10/19/2022 Refill [facility] MEDICINE [address] [place] [address] Lindsey Yu [facility] [address] [place] [address] Dyspepsia Social History Tobacco Use Types Packs/Day [...] Description 09/12/2024 12:15 PM EDT Office Visit [facility] MEDICINE [address] [place] [address] Maddy Grossman MD [address] [place] [address] documented as of this encounter Visit Diagnoses Diagnosis Dyspepsia Dyspepsia and other specified disorders of function of stomach documented in this encounter Care Teams Plant Engineering Manager Relationship Specialty Start Date End Date Lindsey Yu [facility] [address] [place] [address] PCP - General Family Medicine 03/27/22 06/05/23 Mahogany Quevedo NP [address] [place] [address] PCP - General Family Medicine 06/06/23 08/21/23 Maddy Grossman MD [address] [place] [address] PCP - General Internal Medicine 11/22/23 documented as of this encounter
--- OUTSIDE RECORDS SUMMARY | 2024-09-01 14:04 | XMS_ITS | Continuity of Care Document ---
Author Organization [employer] Address [address] [place] [address] Phone Care Team Providers Care School Of Nursing Director Name Role Phone Michelle Smith APN Unavailable [...] For Visit Diagnoses Date Provider Office/outpati ent visit,[facility], [facility], [address] [place], [place], [facility], tel:[phone] [facility] bladder pain and spasms (chief complaint) Encounter for screening, unspecifiedAcute cystitis with hematuriaElevated BP without diagnosis of hypertensionBody mass index (BMI) 29.0-29.9, adult Sarah Martinez. Diana5 Alek Elena, [id number] [address] [place] [address], [address], [place]. tel:[phone] Family History Family Member Type Diagnosis Age At Onset No Information Payers Payer name Insurance type Covered libertarian ID Authortima saturnino(s) Medicare NGS MB [id number] Social History Type Description Quantity Date Captured [...] Mental Status Date Cognitive Assessment Orientation - Olga ed to time, place, person, situation.
--- OUTSIDE RECORDS SUMMARY | 2024-09-01 14:04 | XMS_ITS | Encounter Summary ---
Author Organization [employer] [facility] Address [address] [place] [address] 7 [place] [address] Care Team Providers Care Legislators Name Role Phone Lindsey Yu MINE PROMOTOR Primary Care Provider [phone] Mahogany Quevedo PHARMACY OPERATIONS SPECIALIST Primary Care Provider [phone] Maddy Grossman MD Primary Care Provider + Encounter Details Date Type Department Care Team (Late st Contact Info) Description 01/22/2023 Orders Only [facility] MEDICINE [address] [place] [address] Dalia Gallegos Social History Tobacco Use Types [...] 12:15 PM EDT Office Visit [facility] MEDICINE [address] [place] [address] Maddy Grossman MD [address] [place] [address] [phone] documented as of this encounter Procedures Procedure Name Priority Date/Time Associated Diagnosis Comments THINPREP PAP AND HPV MRNA E6/E7 Routine 07/01/2020 12:00 AM EST documented in this encounter Results * Thinprep PAP and HPV nRNA E6/E7 (07/01/2020 12:00 AM EST) us Historical Provider LAB PATHOLOGY ORDERABLES Final Result documented in this encounter Visit Diagnoses Not on filedocumented in this encounter Care Teams Legislators Relationship Specialty Start Date End Date Lindsey uY FNP [address] [place] [address] PCP - General Family Medicine 03/27/22 06/05/23 Mahogany Quevedo NP [address] [place] [address] PCP - General Family Medicine 06/06/23 08/21/23 Maddy Grossman MD [address] [place] [address] PCP - General Internal Medicine 11/22/23 documented as of this encounter
== END 2024-09-01 13:42 | disposition home or self-care (01) ==
LOC: HO.HWS 12:36
PROVIDERS: Visit Provider Obstetrics & Gynecology
DX: Z01.419 Encounter for gynecological examination (general) (routine) without abnormal findings (principal); R31.29 Other microscopic hematuria; R10.2 Pelvic and perineal pain
CPT/HCPCS: 99213; 99396; 99459

== ENCOUNTER 2024-09-01 13:16 | Outpatient (REF) | payer OTHER, SELFPAY ==
--- OUTSIDE RECORDS SUMMARY | 2024-09-01 14:44 | XMS_ITS | Continuity of Care Document ---
Author Organization [facility] Address [address] [place] [address] Phone Care Team Providers Care Serologist Name Role Phone Michelle Smith APN Unavailable [...] Provider Office/outpati ent visit,[facility], [facility], [address] [place], [place], [facility], tel:[phone] [facility] bladder pain and spasms (chief complaint) Encounter for screening, unspecifiedAcute cystitis with hematuriaElevated BP without diagnosis of hypertensionBody mass index (BMI) 29.0-29.9, adult Sarah Martinez. Diana5 Alek Elena, [id number] [address] [place] [address], [address], [place]. tel:[phone] Family History Family Member Type Diagnosis Age At Onset No Information Payers Payer name Insurance type Covered constitution party ID Authortima saturnino(s) Medicare NGS MB [id number] Social History Type Description Quantity Date Captured [...] Mental Status Date Cognitive Assessment Orientation - Santee ed to time, place, person, situation.
[2024-09-09 11:35] LABS: HPV Genotype 16 Negative (Negative); HPV Genotype 18 Negative (Negative); HPV High Risk Positive (Negative)
== END 2024-09-01 13:17 | disposition home or self-care (01) ==
LOC: HO.LNP 13:16
PROVIDERS: Visit Provider Obstetrics & Gynecology
DX: Z13.89 Encounter for screening for other disorder (principal)
CPT/HCPCS: 87626; 88175

== ENCOUNTER 2024-09-23 10:08 | Outpatient (AMB) | payer OTHER, SELFPAY ==
--- NOTE | 2024-09-23 10:13 | MHC.OFFVIS ---
Vital Signs 09/23/24 10:16 Height 4 ft 11 in Weight 139 lb BMI 28.1 Intake Visit Reasons: Colpo/urine dip Screen Printing Equipment Setter Required: Yes Screen Printing Equipment Setter Language: Osteopathic Medicine Teacher Services: Screen Printing Equipment Setter Present (in person) Screen Printing Equipment Setter Name: Iona VALENTIN Information Interpreted: non-clinical & clinical System Trainer: System Trainer Present (Iona VALENTIN) Accompanied by: Self / Same As Patient Allergies No Known Allergies Allergy (Verified 09/23/24 10:17) HPI Comments Details: Presenting with normal Pap smear HPV high-risk positive, HPV 16/18 negative, history of LOUISE 1 in 2020 [facility] Medical History LOUISE I (cervical intraepithelial neoplasia I) Hypertension Insomnia Anxiety Bipolar 1 disorder Hypothyroid Surgical History Hx of dilation and curettage Hx of cholecystectomy Tubal ligation status Family History Paternal Aunt Breast CA Maternal Grandmother Stomach cancer Son Colon polyps Social History Household Members: None Housing: Apartment Alcohol intake: never Patient Tobacco Use Status: Never used Tobacco Current occupational status: unemployed Sexual orientation: Straight/Heterosexual Gender identity: Female Female Reproductive History Menstrual Age of Menarche: 14 Review of Systems Const All systems reviewed & are unremarkable except as noted in HPI and below Reports as per HPI and Reports no additional complaints GI Reports no additional complaints Reports no additional complaints Physical Exam Vital Signs: BMI result Body Mass Index 28.1 Office Procedures Colposcopy Colposcopy: Pre-Procedure Counseling: Before beginning the procedure, I conducted comprehensive counseling with the patient. We thoroughly discussed the procedure itself, including its details, alternatives, and all associated risks. This included but not limited to the following complications such as bleeding, infection, and injury to the vagina, bladder, and vessels, as well as the potential need for transfusion with all its associated risks. Subsequently, the patient sign the consent. Pap smear result: Negative Pap/HPV high-risk positive, HPV 16/18 negative Procedure: During the procedure, the following steps were performed: A speculum was inserted, and acetic acid was applied. Colposcopy was conducted, allowing visualization of the transformation zone. Acetowhite lesions were identified at the 7+ 12 o'clock position. Cervical biopsies were obtained from the 7+ 12 o'clock position, followed by an endocervical curettage (ECC). Vaginoscopy of the upper vagina revealed no evidence of aceto-white lesions. Hemostasis was achieved using Monsel solution, and the patient tolerated the procedure well. Post-Procedure Instructions: The patient was advised to promptly contact the office or the after hours answering service or go to the emergency room if experiencing a temperature exceeding 100.4?F, abdominal pain, nausea/vomiting, or bleeding. Additionally, the patient was instructed to abstain from vaginal intercourse and bathtub use. The patient confirmed understanding of these instructions. Discharge Instructions: The patient was instructed to schedule a follow-up appointment in 2 weeks for further evaluation and management. Please note that this note was generated using a voice recognition program, and errors may have occurred during manager leasing. [id number] of cervix including upper vagina with biopsy and ECC Procedure code (CPT) selection complete Assessment & Plan Assessment & Plan (1) Cervical high risk human papillomavirus (HPV) DNA test positive: Code(s): R87.810 - Cervical high risk human papillomavirus (HPV) DNA test positive Category: Medical Plan: Discussed with the patient the result of her normal pap/HPV high-risk positive, its significance, risk of progression, persistence, and regression. the false positive/negative rate of a Pap smear/HPV as a screening test in detecting cervical cancer and the indication for a diagnostic test -colposcopy, biopsy, endocervical curettage. The patient verbalized understanding and agreed with the plan, all questions answered. Colpo/biopsy/ECC done, see procedure note Orders: Orders AMB Colposcopy Today R87.810 - Cervical high risk human papillomavirus (HPV) DNA test positive Coding Level of Care Code Procedure Only Diagnoses Cervical high risk human papillomavirus (HPV) DNA test positive R87.810 CPT Codes Colposcopy - CPT: 90707-Xtrqhozar of cervix including upper vagina with biopsy and ECC ([id number])
[2024-09-23 10:16] VITALS: BMI 28.1
--- OUTSIDE RECORDS SUMMARY | 2024-09-23 10:50 | XMS_ITS | Clinical Summary ---
Author Organization [employer] [facility] it Address [address] [place] [address] Care Team Providers Care Arch Cushion Press Operator Name Role Phone Unavailable Primary Care Provider [...]
== END 2024-09-23 10:46 | disposition home or self-care (01) ==
LOC: HO.HWS 10:09
PROVIDERS: Visit Provider Obstetrics & Gynecology
DX: R87.810 Cervical high risk human papillomavirus (HPV) DNA test positive (principal)
CPT/HCPCS: 57454

== ENCOUNTER 2024-09-23 10:08 | Outpatient (REF) | payer OTHER, SELFPAY | END 2024-09-23 10:09 | disposition home or self-care (01) | LOC: HO.LNP 10:08 | PROVIDERS: Visit Provider Obstetrics & Gynecology | DX: R87.810 Cervical high risk human papillomavirus (HPV) DNA test positive (principal) | CPT/HCPCS: 57454; 88305; 88341; 88342 ==

== ENCOUNTER 2024-10-14 11:19 | Outpatient (REF) | payer OTHER, SELFPAY ==
--- OUTSIDE RECORDS SUMMARY | 2024-10-14 12:58 | XMS_ITS | Encounter Summary ---
Author Organization [employer] Address [address] [place] [address] [address] [address] Care Team Providers Care Food And Beverage Service Manager Name Role Phone Maddy Grossman MD Primary Care Provider + Reason for Visit * Reason Onset Date Comments Appointment Request 02/05/2024 Encounter Details Date Type Department Care Team ([facility] st Contact Info) Description 02/05/2024 Telephone [facility] MEDICINE [address] [place], [place] [phone] Maddy Grossman MD [address] [place] [address] Appointment Request Social History Tobacco Use Types [...] documented in this encounter Plan of Treatment Not on file documented as of this encounter Visit Diagnoses Not on filedocumented in this encounter Care Teams Food And Beverage Service Manager Relationship Specialty Start Date End Date Maddy Grossman MD [address] [place] [address] PCP - General Internal Medicine 11/22/23 documented as of this encounter
== END 2024-10-14 11:20 | disposition home or self-care (01) ==
LOC: HO.MAMMO 11:19
PROVIDERS: PCP Internal Medicine; Visit Provider Obstetrics & Gynecology
DX: Z12.31 Encounter for screening mammogram for malignant neoplasm of breast (principal)
CPT/HCPCS: 77063; 77067

== ENCOUNTER → 2024-10-14 11:30 | Outpatient (BNV) | payer OTHER, SELFPAY | PROVIDERS: PCP Internal Medicine; Visit Provider Internal Medicine | DX: Z12.31 Encounter for screening mammogram for malignant neoplasm of breast (principal) | CPT/HCPCS: 77063; 77067 ==

== ENCOUNTER 2024-10-21 09:13 | Outpatient (AMB) | payer OTHER, SELFPAY ==
--- NOTE | 2024-10-21 09:23 | A.OFFVIS_ITS ---
Vital Signs 10/21/24 09:25 Height 4 ft 11 in Weight 139 lb BMI 28.1 Intake Visit Reasons: Colpo result Senior Assistant Manager Required: Yes Senior Assistant Manager Language: Laundry Machine Tender Services: Senior Assistant Manager Present (in person) Senior Assistant Manager Name: Iona VALENTIN Information Interpreted: non-clinical & clinical Accompanied by: Self / Same As Patient Allergies No Known Allergies Allergy (Verified 10/21/24 09:26) Post menopausal: Yes HPI Comments Details: Presenting post colpo for follow-up. The patient is doing well with no complaints. The pathology showed the following: A. Endocervix, curettage: Squamous mucosa with inflammation and reactive changes; negative for dysplasia; no endocervical glandular component present. B. Cervix, 7:00, biopsy: Squamous mucosa with inflammation; negative for dysplasia; no endocervical glandular component present. C. Cervix, 12:00, biopsy: Squamous mucosa with inflammation and reactive changes; negative for dysplasia; no endocervical glandular component present. Comment: The patient's previous negative Pap test ([id number]) concurs with the current biopsy. [facility] Medical History LOUISE I (cervical intraepithelial neoplasia I) Hypertension Insomnia Anxiety Bipolar 1 disorder Hypothyroid Surgical History Hx of dilation and curettage Hx of cholecystectomy Tubal ligation status Family History Paternal Aunt Breast CA Maternal Grandmother Stomach cancer Son Colon polyps Social History Household Members: None Housing: Apartment Alcohol intake: never Patient Tobacco Use Status: Never used Tobacco Current occupational status: unemployed Sexual orientation: Straight/Heterosexual Gender identity: Female Female Reproductive History Menstrual Age of Menarche: 14 Review of Systems Const All systems reviewed & are unremarkable except as noted in HPI and below Reports as per HPI and Reports no additional complaints GI Reports no additional complaints Reports no additional complaints Physical Exam Vital Signs: BMI result Body Mass Index 28.1 Assessment & Plan Assessment & Plan (1) Cervical high risk human papillomavirus (HPV) DNA test positive: Code(s): R87.810 - Cervical high risk human papillomavirus (HPV) DNA test positive Category: Medical Plan: Discussed with the patient the pathology results of the colposcopy biopsies & endocervical curettage . Discussed with the patient the sensitivity specificity, positive and negative predictive value in detecting cervical cancer in addition discussed the regression, persistence and progression rates. Recommended co-testing in 12 months, if cytology and or HPV are abnormal will proceed was colposcopy biopsy and endocervical curettage. Instructions given to the patient to schedule a co test appointment in 1 year. All questions answered the patient verbalized understanding. Coding Level of Care Code Est Pt Level 3 (92233) Diagnoses Cervical high risk human papillomavirus (HPV) DNA test positive R87.810
[2024-10-21 09:25] VITALS: BMI 28.1
--- OUTSIDE RECORDS SUMMARY | 2024-10-21 09:50 | XMS_ITS | Encounter Summary ---
Author Organization [employer] Address [address] [facility] [address] [place] [address] Care Team Providers Care Facilities Coordinator Name Role Phone Maddy Grossman MD Primary Care Provider + Encounter Details Date Type Department Care Team (Late st Contact Info) Description 10/14/2024 Orders Only [facility] External Provider, [facility] Social History Tobacco Use Types Packs/Day Years [...] as of this encounter Plan of Treatment Not on file documented as of this encounter Procedures Procedure Name Priority Date/Time Associated Diagnosis Comments BI MAMMOGRAM SCREENING TOMOSYNTHESIS BILATERAL Routine 10/14/2024 11:25 AM EDT documented in this encounter Results * BI Mammogram Screening Tomosynthesis Bilateral (10/14/2024 11:25 AM EDT) Anatomical Region Laterality Modality Breast Bilateral Mammography 10/14/2024 11:2 5 AM EDT Narrative 10/19/2024 9:01 PM EDT [address] [place] [address] Mammography Report Signed Patient: Lorie Dutton MR#: [id number] 7 : 1970 Acct:[id number] Age/Sex: 54 / F ADM Date: 10/14/24 [facility]: Teodoro Mendez MD Ordering Physician: Teodoro Mendez MD Results: 1Negativ e Date of Service: 10/14/24 Follow Up: 1 Year From Orig inal Mammogram Procedure(s): MM tomosynthesis screening BI Accession Number(s): [id number] cc: Maddy Grossman MD; Teodoro Mendez MD EXAMINATION: MM SCREENING DIGITAL BREAST TOMOSYNTHESIS, BILATERAL CLINICAL INFORMATION: Screening. Asymptomatic. COMPARISON: Mammography: Comparison is made with available priors TECHNIQUE: Digital breast mammography with tomosynthesis is performed in both the craniocaudal and mediolateral oblique views along with computer-aided detection (CAD). FINDINGS: The breasts are heterogeneously dense, which may obscure small masses (ACR BI-RADS breast composition Category c). There are no significant masses, abnormal calcifications, or other abnormalities. MM/MM tomosynthesis screening BI IMPRESSION: No mammographic evidence of malignancy. ASSESSMENT: BI-RADS BI-RADS 1 - Negative RECOMMENDATION: Routine annual mammography screening. 1 year F/U This examination should not preclude the clinical evaluation of a suspicious palpable abnormality. This patient's information was entered into a reminder system with a target due date for their next mammogram. Electronically signed by: Hedy Ortega DO 10/19/2024 08:58 PM EDT RP Dictated By: Hedy Ortega DO Signed By: <Electronically signed by Hedy Ortega DO in OV> 10/19/242057 DD/ 1125 TD/TT: 10/14/24 1152 Anchor Tack Puller: Procedure Note Donotuseinterpreter, Image - [facility] [address] [place] [address] Mammography Report Signed Patient: Lorie Dutton [facility]#: [id number] 7 : 1970Acct:[id number] Age/Sex: 54 / FADM Date: 10/14/24 Loc: [facility]MAMMO Attending Dr: Teodoro Mendez MD Ordering Physician: Teodoro Mendez MDResults: 1Negativ e Date of Service: 10/14/24Follow Up: 1 Year From Orig ina Mammogram Procedure(s): MM tomosynthesis screening BI Accession Number(s): [id number] cc: Maddy Grossman MD; Teodoro Mendez MD EXAMINATION: MM SCREENING DIGITAL BREAST TOMOSYNTHESIS, BILATERAL CLINICAL INFORMATION: Screening. Asymptomatic. COMPARISON: Mammography: Comparison is made with available priors TECHNIQUE: Digital breast mammography with tomosynthesis is performed in both the craniocaudal and mediolateral oblique views along with computer-aided detection (CAD). FINDINGS: The breasts are heterogeneously dense, which may obscure small masses (ACR BI-RADS breast composition Category c). There are no significant masses, abnormal calcifications, or other abnormalities. MM/MM tomosynthesis screening BI IMPRESSION: No mammographic evidence of malignancy. ASSESSMENT: BI-RADS BI-RADS 1 - Negative RECOMMENDATION: Routine annual mammography screening. 1 year F/U This examination should not preclude the clinical evaluation of a suspicious palpable abnormality. This patient's information was entered into a reminder system with a target due date for their next mammogram. Electronically signed by: Hedy Ortega DO 10/19/2024 08:58 PM EDT Dictated By: Hedy Ortega DO Signed By: <Electronically signed by Hedy Ortega DO in OV> 10/19/242057 DD/ 112 TD/TT: 10/14/24 1152 Anchor Tack Puller: [facility] External Provider IMG BI PROCEDURES Edited Result - Final documented in this encounter Visit Diagnoses Not on filedocumented in this encounter Additional Health Concerns Assessment Noted Time PHQ-9 Depression Total Score: 0 07/05/19 25 8:55 AM EST documented as of this encounter Care Teams Facilities Coordinator Relationship Specialty Start Date End Date Maddy Grossman MD [address] [place] [address] PCP - General Internal Medicine 11/22/23 documented as of this encounter
== END 2024-10-21 09:38 | disposition home or self-care (01) ==
LOC: HO.HWS 09:14
PROVIDERS: Visit Provider Obstetrics & Gynecology
DX: R87.810 Cervical high risk human papillomavirus (HPV) DNA test positive (principal)
CPT/HCPCS: 99213

== ENCOUNTER → 2024-10-21 09:13 | Outpatient (BNVA) | payer OTHER, SELFPAY | PROVIDERS: Visit Provider Obstetrics & Gynecology | DX: Z71.2 Person consulting for explanation of examination or test findings (principal); R87.810 Cervical high risk human papillomavirus (HPV) DNA test positive | CPT/HCPCS: 99212 ==

== ENCOUNTER 2025-01-06 11:32 | Outpatient (REF) | payer OTHER, SELFPAY ==
[2025-01-06 13:30] LABS: Hemoglobin A1C 120.2066 umol/L; Total Hemoglobin (HGBA1C) 3271.1246 umol/L
== END 2025-01-06 11:33 | disposition home or self-care (01) ==
LOC: HO.HHCL 11:32
PROVIDERS: PCP Internal Medicine; Visit Provider Internal Medicine
DX: Z13.1 Encounter for screening for diabetes mellitus (principal); E66.811 Obesity, class 1; E66.09 Other obesity due to excess calories; Z68.30 Body mass index [BMI] 30.0-30.9, adult; L65.9 Nonscarring hair loss, unspecified
CPT/HCPCS: 36415; 82947; 83036; 84443